=== PATIENT | male | born 1950 | race Caucasian/White ===

== ENCOUNTER 2021-12-14 07:36 | Outpatient (CLI) | payer MEDICARE, OTHER, SELFPAY ==
--- NOTE | 2021-12-23 15:27 | WPDSLEEPSTUD ---
Sleep Study Date of Study: 12/14/21 Ordering Provider: Yan Fletcher DO Interpreting Physician: Nila Rodríguez MD Sleep Study Type: Polysomnogram Height: 1.83 m Weight: 93.44 kg Body Mass Index: 27.9 Neck Circumference (inches): 16.5 [place]: 4 Reason for Sleep Study Hypersomnia Sleep History Blank Houston is a 71 year old man with hypertension, paroxysmal atrial fibrillation and dyslipidemia. He has occasional snoring, and this bothers others, on occasion. He occasionally has trouble sleeping with a cold. He corona not gasp for breath at night. He does not sweat excessively at night. He rarely notices his heart pounding or beating irregularly at night. He rarely falls asleep during the day, never falls asleep involuntarily and never falls asleep while driving. He does not have loss of muscle tone with strong emotion. Does not have daytime difficulties due to excessive sleepiness. He does not feel paralyzed on waking or falling asleep nor does he have vivid dreamlike scenes upon awakening or falling asleep. He does not feel afraid to go to sleep. He occasionally remembers his dreams. He rarely has racing thoughts. He does not feel sad or depressed. He rarely has anxiety. He does not have muscular tension. He rarely notices parts of his body jerking and he rarely kicks at night. He does not have crawling or aching feelings in the legs, does not have any kind of leg pain at night and does not have morning jaw pain. He rarely grinds his teeth during sleep. He rarely is bothered by pain during the day and rarely awakened by pain during the night. He does not wake up feeling stiff in the morning, does not wake up with sore or achy muscles and does not wake up with pain in the neck or spine. He has sexual problems. Normal bedtime is between 10:00 p.m. and 10:30 p.m., falling asleep easily, typically waking 2-4 times at night to go to the bathroom. He is not awake for very long, and he is able to return to sleep. He wakes in the morning between 6 and 7:00 a.m.. His weekend schedule is the same. He takes naps in the afternoon or evening. A short nap is refreshing. He often awakens feeling refreshed. He feels better in the morning compared to other times of day. Habits: Never smoked tobacco. No caffeine, alcohol or recreational drugs. [facility] Past Medical History Medical History (Updated 12/23/21 @ 15:52 by Nila Rodríguez MD) Fatigue Hx of ventricular fibrillation Hyperlipidemia Hypertension PAF (paroxysmal atrial fibrillation) Since 1999 Family History Family History Father Carcinoma of colon Patient's father is Mother Family history of heart disease in male family member before age 55 Patient's mother is Social History Social History Smoking status: Never smoker Second hand tobacco smoke exposure: No Alcohol intake: current Medications Home Medications Medication Instructions Recorded Confirmed Type acetaminophen 500 mg tablet 1,000 mg PO Q6H PRN tablet 07/17/19 12/07/21 History finasteride 5 mg tablet 5 mg PO DAILY 07/17/19 12/07/21 History glucosamine-chondroitin 250 mg-200 1 tablet PO DAILY tablet 07/17/19 12/07/21 History mg tablet tamsulosin 0.4 mg capsule 0.4 mg PO DAILY 07/19/19 12/07/21 History losartan 50 mg-hydrochlorothiazide 1 tablet PO DAILY #90 tablet 06/18/21 12/07/21 Rx 12.5 mg tablet rosuvastatin 10 mg tablet 10 mg PO DAILY #90 tablet 09/19/21 12/07/21 Rx flecainide 100 mg tablet 100 mg PO .prn #30 tablet 12/09/21 Rx apixaban 5 mg tablet 5 mg PO BID #180 tablet 12/10/21 Rx metoprolol tartrate 50 mg tablet 50 mg PO Q12H #180 tablet 12/10/21 Rx Sleep Procedure This test was performed using the [employer] multiple channel system including EOG, EEG, submental EMG, EKG, nasal and oral airflow using thermistors and nasal pr
[2021-12-23 15:34] VITALS: BMI 27.9
== END 2021-12-15 06:12 | disposition home or self-care (01) ==
LOC: ANHCSM 07:39
PROVIDERS: PCP Internal Medicine; Visit Provider Internal Medicine Cardiovascular Disease
DX: G47.30 Sleep apnea, unspecified (principal); G47.33 Obstructive sleep apnea (adult) (pediatric)
CPT/HCPCS: 95810

== ENCOUNTER 2022-01-05 07:37 | Outpatient (CLI) | payer MEDICARE, OTHER, SELFPAY ==
--- NOTE | 2022-01-18 16:28 | WPDSLEEPSTUD ---
Sleep Study Date of Study: 01/05/22 Ordering Provider: Yan Fletcher DO Interpreting Physician: Nila Rodríguez MD Sleep Study Type: CPAP Titration Height: 1.83 m Weight: 93.44 kg Body Mass Index: 27.9 Neck Circumference (inches): 15.5 [place]: 4 Reason for Sleep Study * Basic sleep study December 14, 2021 showed mild obstructive sleep apnea with an apnea hypopnea index of 13.2, worse in REM with an AHI of 41.1, moderate snoring and desaturation to 81% with 50.2 minutes spent below 88%. He has history of paroxysmal atrial fibrillation, hypertension and dyslipidemia. He returns for an in-lab CPAP titration. Sleep History Blank Houston is a 71 year old man with a mild obstructive sleep apnea seen on a basic sleep study 12/14/2021. hypertension, paroxysmal atrial fibrillation and dyslipidemia. He has occasional snoring, and this bothers others, on occasion. He occasionally has trouble sleeping with a cold. He corona not gasp for breath at night. He does not sweat excessively at night. He rarely notices his heart pounding or beating irregularly at night. He rarely falls asleep during the day, never falls asleep involuntarily and never falls asleep while driving. He does not have loss of muscle tone with strong emotion. Does not have daytime difficulties due to excessive sleepiness. He does not feel paralyzed on waking or falling asleep nor does he have vivid dreamlike scenes upon awakening or falling asleep. He does not feel afraid to go to sleep. He occasionally remembers his dreams. He rarely has racing thoughts. He does not feel sad or depressed. He rarely has anxiety. He does not have muscular tension. He rarely notices parts of his body jerking and he rarely kicks at night. He does not have crawling or aching feelings in the legs, does not have any kind of leg pain at night and does not have morning jaw pain. He rarely grinds his teeth during sleep. He rarely is bothered by pain during the day and rarely awakened by pain during the night. He does not wake up feeling stiff in the morning, does not wake up with sore or achy muscles and does not wake up with pain in the neck or spine. He has sexual problems. Normal bedtime is between 10:00 p.m. and 10:30 p.m., falling asleep easily, typically waking 2-4 times at night to go to the bathroom. He is not awake for very long, and he is able to return to sleep. He wakes in the morning between 6 and 7:00 a.m.. His weekend schedule is the same. He takes naps in the afternoon or evening. A short nap is refreshing. He often awakens feeling refreshed. He feels better in the morning compared to other times of day. Habits: Never smoked tobacco. No caffeine, alcohol or recreational drugs. [facility] Past Medical History Medical History (Updated 01/18/22 @ 16:35 by Nila Rodríguez MD) Fatigue Hx of ventricular fibrillation Hyperlipidemia Hypertension Obstructive sleep apnea PAF (paroxysmal atrial fibrillation) Since 1999 Surgical History Surgical History Status post biopsy of skin Family History Family History Father Carcinoma of colon Patient's father is Mother Family history of heart disease in male family member before age 55 Patient's mother is Social History Social History Smoking status: Never smoker Second hand tobacco smoke exposure: No Alcohol intake: current Medications Home Medications Medication Instructions Recorded Confirmed Type acetaminophen 500 mg tablet 1,000 mg PO Q6H PRN tablet 07/17/19 12/24/21 History finasteride 5 mg tablet 5 mg PO DAILY 07/17/19 12/24/21 History glucosamine-chondroitin 250 mg-200 1 tablet PO DAILY tablet 07/17/19 12/24/21 History mg tablet tamsulosin 0.4 mg capsule 0.4 mg PO DAILY 07/19/19 12/24/21 History buffy
[2022-01-18 18:50] VITALS: BMI 27.9
== END 2022-01-06 07:01 | disposition home or self-care (01) ==
LOC: ANHCSM 07:38
PROVIDERS: PCP Internal Medicine; Visit Provider Internal Medicine Cardiovascular Disease
DX: G47.33 Obstructive sleep apnea (adult) (pediatric) (principal)
CPT/HCPCS: 95811

== ENCOUNTER 2022-02-01 01:04 | Day surgery (SDC) | payer MEDICARE, OTHER, SELFPAY ==
[2022-01-26 15:05] VITALS: BMI 27.1
[2022-02-01 06:22] VITALS: BP 151/91; PULSE 63; RESP 18; TEMP 36.6; O2SAT 99
[2022-02-01] MEDS: LACTATED RINGERS 1,000 ML 150 ML IV CONT (06:34)
--- NOTE | 2022-02-01 07:19 | WPDANESEPPF ---
Anes - Initial Pre Proc Eval Procedure: Operation Date: 02/01/22 07:30 Proposed Procedures p Screening Colonoscopy - Nikolas Christie MD Date/Time: 02/01/22 07:19 Surgeon: Nikolas Christie MD Pre Op Diagnosis: neoplasm screening Patient Data Age: 71 Gender: M Height: 1.83 m Weight: 90.4 kg Last Vital Signs Temp 97.9 F 02/01/22 06:22 Pulse 63 02/01/22 06:22 Resp 18 02/01/22 06:22 BP 151/91 H 02/01/22 06:22 Pulse Ox 99 02/01/22 06:22 Allergies Allergy/AdvReac Type Severity Reaction Status Date / Time atorvastatin Allergy Intermediate Muscle pain Verified 02/01/22 06:20 Sulfa (Sulfonamide Allergy Mild Vomiting Verified 02/01/22 06:20 Antibiotics) adhesive tape AdvReac Mild Rash Verified 02/01/22 06:20 Home Medications Medication Instructions Recorded Confirmed Type acetaminophen 500 mg tablet 1,000 mg PO Q6H PRN tablet 07/17/19 01/26/22 History finasteride 5 mg tablet 5 mg PO DAILY 07/17/19 01/26/22 History glucosamine-chondroitin 250 mg-200 1 tablet PO DAILY tablet 07/17/19 01/26/22 History mg tablet tamsulosin 0.4 mg capsule 0.4 mg PO DAILY 07/19/19 01/26/22 History rosuvastatin 10 mg tablet 10 mg PO DAILY #90 tablet 09/19/21 01/26/22 Rx apixaban 5 mg tablet 5 mg PO BID #180 tablet 12/10/21 02/01/22 Rx metoprolol tartrate 50 mg tablet 50 mg PO Q12H #180 tablet 12/10/21 02/01/22 Rx flecainide 100 mg PO PRN PRN 01/26/22 01/26/22 History loratadine [Claritin] 10 mg PO DAILY 01/26/22 01/26/22 History losartan 50 mg PO DAILY 01/26/22 01/26/22 History Patient hx anesthesia problems: none Family hx anesthesia problems: none Results Review: All pre-operative results and documents have been reviewed as part of the pre-operative evaluation. [facility] Past Medical History Medical History (Updated 01/18/22 @ 16:35 by Nila Rodríguez MD) Fatigue Hx of ventricular fibrillation Hyperlipidemia Hypertension Obstructive sleep apnea PAF (paroxysmal atrial fibrillation) Since 1999 Surgical History Surgical History Status post biopsy of skin Family History Family History Father Carcinoma of colon Patient's father is Mother Family history of heart disease in male family member before age 55 Patient's mother is Social History Social History Smoking status: Never smoker Second hand tobacco smoke exposure: No Alcohol intake: never Substance use: never Substance use type: does not use Living arrangements: with family Spiritual care concerns: No Anes - Eval Final PreProcedure Day of Procedure 02/01/22 07:19 Patient weight: normal Heart: irregular rhythm Lungs: clear to auscultation Airway: Mallampati scale class III Neurological: alert and oriented Last oral intake: >/= 8 hours ASA classification: III Emergent: no Anesthetic plan: proceed Anesthesia type and monitoring: general GIVS and standard monitoring Results Review: All pre-operative results and documents have been reviewed as part of the pre-operative evaluation. Informed Consent: The patient's anesthetic plan and its attendant risks and benefits were discussed with the patient/family/POA. Questions were solicited and answers provided to the satisfaction of the patient/family/POA.
--- NOTE | 2022-02-01 07:24 | WPDANESEPPF ---
Anes - Initial Pre Proc Eval Procedure: Operation Date: 02/01/22 07:30 Proposed Procedures p Screening Colonoscopy - Nikolas Christie MD Date/Time: 02/01/22 07:24 Surgeon: Nikolas Christie MD Pre Op Diagnosis: neoplasm screening Patient Data Age: 71 Gender: M Height: 1.83 m Weight: 90.4 kg Last Vital Signs Temp 97.9 F 02/01/22 06:22 Pulse 63 02/01/22 06:22 Resp 18 02/01/22 06:22 BP 151/91 H 02/01/22 06:22 Pulse Ox 99 02/01/22 06:22 Allergies Allergy/AdvReac Type Severity Reaction Status Date / Time atorvastatin Allergy Intermediate Muscle pain Verified 02/01/22 06:20 Sulfa (Sulfonamide Allergy Mild Vomiting Verified 02/01/22 06:20 Antibiotics) adhesive tape AdvReac Mild Rash Verified 02/01/22 06:20 Home Medications Medication Instructions Recorded Confirmed Type acetaminophen 500 mg tablet 1,000 mg PO Q6H PRN tablet 07/17/19 01/26/22 History finasteride 5 mg tablet 5 mg PO DAILY 07/17/19 01/26/22 History glucosamine-chondroitin 250 mg-200 1 tablet PO DAILY tablet 07/17/19 01/26/22 History mg tablet tamsulosin 0.4 mg capsule 0.4 mg PO DAILY 07/19/19 01/26/22 History rosuvastatin 10 mg tablet 10 mg PO DAILY #90 tablet 09/19/21 01/26/22 Rx apixaban 5 mg tablet 5 mg PO BID #180 tablet 12/10/21 02/01/22 Rx metoprolol tartrate 50 mg tablet 50 mg PO Q12H #180 tablet 12/10/21 02/01/22 Rx flecainide 100 mg PO PRN PRN 01/26/22 01/26/22 History loratadine [Claritin] 10 mg PO DAILY 01/26/22 01/26/22 History losartan 50 mg PO DAILY 01/26/22 01/26/22 History Patient hx anesthesia problems: none Family hx anesthesia problems: none Results Review: All pre-operative results and documents have been reviewed as part of the pre-operative evaluation. [facility] Past Medical History Medical History (Updated 01/18/22 @ 16:35 by Nila Rodríguez MD) Fatigue Hx of ventricular fibrillation Hyperlipidemia Hypertension Obstructive sleep apnea PAF (paroxysmal atrial fibrillation) Since 1999 Surgical History Surgical History Status post biopsy of skin Family History Family History Father Carcinoma of colon Patient's father is Mother Family history of heart disease in male family member before age 55 Patient's mother is Social History Social History Smoking status: Never smoker Second hand tobacco smoke exposure: No Alcohol intake: never Substance use: never Substance use type: does not use Living arrangements: with family Spiritual care concerns: No Anes - Eval Final PreProcedure Day of Procedure 02/01/22 07:24 Results Review: All pre-operative results and documents have been reviewed as part of the pre-operative evaluation. Informed Consent: The patient's anesthetic plan and its attendant risks and benefits were discussed with the patient/family/POA. Questions were solicited and answers provided to the satisfaction of the patient/family/POA.
--- NOTE | 2022-02-01 07:44 | WPDGICN ---
Assessment and Plan Assessment and plan (1) Encounter for screening colonoscopy: Code(s): Z12.11 - Encounter for screening for malignant neoplasm of colon Status: Acute Assessment and Plan: Patient presents today for neoplasia screening colonoscopy. Further recommendations will be given after colonoscopy. GI Consult Note Consult date/time: 02/01/22 07:44 HPI: Blank Houston Jr. is a 71 year old male Presents for screening colonoscopy. Patient's current weight appetite and bowel movements are normal. He denies abdominal pain. He has had no bleeding. Family history is noncontributory. Past medical history is significant for atrial fibrillation for which she is on Eliquis. This been held in anticipation of colonoscopy. Review of Systems Review of Systems: All systems reviewed & are unremarkable except as noted in HPI and below PMFSH Past Medical History Medical History (Updated 02/01/22 @ 07:45 by Nikolas Christie MD) Fatigue Hx of ventricular fibrillation Hyperlipidemia Hypertension Obstructive sleep apnea PAF (paroxysmal atrial fibrillation) Since 1999 Surgical History Surgical History Status post biopsy of skin Family History Family History Father Carcinoma of colon Patient's father is Mother Family history of heart disease in male family member before age 55 Patient's mother is Social History Social History Smoking status: Never smoker Second hand tobacco smoke exposure: No Alcohol intake: never Substance use: never Substance use type: does not use Living arrangements: with family Spiritual care concerns: No Meds Home Medications and Allergies Home Medications Medication Instructions Recorded Confirmed Type acetaminophen 500 mg tablet 1,000 mg PO Q6H PRN tablet 07/17/19 01/26/22 History finasteride 5 mg tablet 5 mg PO DAILY 07/17/19 01/26/22 History glucosamine-chondroitin 250 mg-200 1 tablet PO DAILY tablet 07/17/19 01/26/22 History mg tablet tamsulosin 0.4 mg capsule 0.4 mg PO DAILY 07/19/19 01/26/22 History rosuvastatin 10 mg tablet 10 mg PO DAILY #90 tablet 09/19/21 01/26/22 Rx apixaban 5 mg tablet 5 mg PO BID #180 tablet 12/10/21 02/01/22 Rx metoprolol tartrate 50 mg tablet 50 mg PO Q12H #180 tablet 12/10/21 02/01/22 Rx flecainide 100 mg PO PRN PRN 01/26/22 01/26/22 History loratadine [Claritin] 10 mg PO DAILY 01/26/22 01/26/22 History losartan 50 mg PO DAILY 01/26/22 01/26/22 History Allergies Allergy/AdvReac Type Severity Reaction Status Date / Time atorvastatin Allergy Intermediate Muscle pain Verified 02/01/22 06:20 Sulfa (Sulfonamide Allergy Mild Vomiting Verified 02/01/22 06:20 Antibiotics) adhesive tape AdvReac Mild Rash Verified 02/01/22 06:20 Vital Signs Vital Signs - 24 hr 02/01/22 06:22 Temperature 97.9 F Pulse Rate 63 Respiratory Rate 18 Blood Pressure 151/91 H Pulse Oximetry 99 Exam Narrative: Physical exam reveals patient to be alert. Vital signs stable. HEENT exam is unremarkable. Patient is anicteric. Lungs are clear to auscultation and percussion. Heart is without murmur and extra sounds. Abdominal exam bowel sounds are present soft nontender with no hepatosplenomegaly. Digital external rectal exam is normal.
[2022-02-01 07:47] VITALS: BP 116/69; PULSE 72; RESP 21; O2SAT 96
[2022-02-01 07:51] VITALS: BP 118/71; PULSE 69; RESP 20; O2SAT 96
[2022-02-01 08:03] VITALS: BP 126/86; PULSE 69; RESP 14; O2SAT 94
== END 2022-02-01 08:08 | disposition home or self-care (01) ==
PROVIDERS: PCP Internal Medicine; Visit Provider Internal Medicine Gastroenterology
PROC: 0DJD8ZZ Inspection of Lower Intestinal Tract, Via Natural or Artificial Opening Endoscopic (ICD-10-PCS; CPT 45378; principal; 2022-02-01 07:30)
DX: Z12.11 Encounter for screening for malignant neoplasm of colon (principal); D12.3 Benign neoplasm of transverse colon; K64.8 Other hemorrhoids; K57.30 Diverticulosis of large intestine without perforation or abscess without bleeding; I10 Essential (primary) hypertension; I48.0 Paroxysmal atrial fibrillation; E78.5 Hyperlipidemia, unspecified; G47.33 Obstructive sleep apnea (adult) (pediatric); Z79.01 Long term (current) use of anticoagulants
CPT/HCPCS: 45385; 88305; J2704; J7120

== ENCOUNTER 2023-02-24 13:31 | Emergency (ER) | payer MEDICARE, OTHER, SELFPAY ==
[2023-02-24 13:36] VITALS: BP 145/92; PULSE 70; RESP 16; TEMP 36.8; O2SAT 97
--- NOTE | 2023-02-24 13:59 | ED.GENADULT ---
HPI - General Adult General Chief complaint: Skin/Abscess/Foreign Body Stated complaint: TICK BITE Time Seen by Provider: 02/24/23 13:59 Source: patient, RN notes reviewed and old records reviewed Mode of arrival: ambulatory Limitations: no limitations History of Present Illness HPI narrative: 72 year [facility] by with complaints of tick bite to his right posterior thigh area which his pulled out of his leg today. Patient reports that he doesn't know how long it had been there. Patient has small red area to the posterior aspect of his right thigh no drainage noted or any bulls eye formation at site, patient denies any body aches or fevers. MD complaint: tick bite Onset (ago): hour(s) (noted this morning) Location: right and lower extremity (posterior thigh) Associated symptoms: denies other symptoms Treatments prior to arrival: other ( pulled tick out of his leg) Related Data Home Medications Medication Instructions Recorded Confirmed acetaminophen 500 mg tablet 1,000 mg PO Q6H PRN Pain 07/17/19 02/03/23 (Tylenol Extra Strength) finasteride 5 mg tablet 5 mg PO DAILY 07/17/19 02/03/23 glucosamine-chondroitin 250 mg-200 1 tablet PO DAILY 07/17/19 02/03/23 mg tablet (Osteo Bi-Flex) tamsulosin 0.4 mg capsule 0.4 mg PO DAILY 07/19/19 02/03/23 loratadine 10 mg tablet (Claritin) 10 mg PO DAILY 01/26/22 02/03/23 Allergies Allergy/AdvReac Type Severity Reaction Status Date / Time atorvastatin Allergy Intermediate Muscle pain Verified 02/24/23 13:53 Sulfa (Sulfonamide Allergy Mild Vomiting Verified 02/24/23 13:53 Antibiotics) adhesive tape AdvReac Mild Rash Verified 02/24/23 13:53 Review of Systems Review of Systems: CONSTITUTIONAL: Denies fever, chills, or sweats. CARDIOVASCULAR: Denies chest pain, palpitations, or edema. RESPIRATORY: Denies cough or dyspnea. GASTROINTESTINAL: Denies abdominal pain, nausea, vomiting SKIN: small red bite area to posterior right thigh where removed tick this morning, no drainage noted or pain to site MUSCULOSKELETAL: Denies myalgia. NEUROLOGIC: Denies headache, numbness All systems reviewed & are unremarkable except as noted in HPI and below PMFSH Past Medical History Medical History (Updated 02/25/23 @ 09:36 by Dottie Kennedy NP) BPH (benign prostatic hyperplasia) Fatigue Hx of ventricular fibrillation Hyperlipidemia Hypertension Obstructive sleep apnea PAF (paroxysmal atrial fibrillation) Since 1999 Surgical History Surgical History (Updated 02/25/23 @ 09:31 by Dottie Kennedy NP) H/O inguinal hernia repair History of medial meniscus repair of left knee Status post biopsy of skin Family History Family History Father Carcinoma of colon Patient's father is Mother Family history of heart disease in male family member before age 55 Patient's mother is Social History Social History Smoking status: Never smoker Second hand tobacco smoke exposure: No Alcohol intake: never Substance use: never Substance use type: does not use Lack of Transportation: No Lack of Food: Never True Current Housing: I Have Housing Concerned About Future Housing: No Difficulty Paying Gas/Electric Bills: No Difficulty Paying for Meds: No Currently Unemployed: No Education: High School Diploma/GED Difficulty w/ Childcare or Family Care: No Living arrangements: with family Spiritual care concerns: No Comments At time of signature, agree with nursing past medical, surgical, social and family history. There is no relevant family history pertinent to the presenting complaint Exam Narrative: GENERAL: Well-appearing, well-nourished, and in no acute distress.denies any fevers or any body aches HEAD: Normocephalic, atraumatic. EYES: PERRLA an
== END 2023-02-24 14:19 | disposition home or self-care (01) ==
PROVIDERS: Emergency Provider Registered Nurse; PCP Internal Medicine
DX: S70.361A Insect bite (nonvenomous), right thigh, initial encounter (principal); W57.XXXA Bitten or stung by nonvenomous insect and other nonvenomous arthropods, initial encounter; N40.0 Benign prostatic hyperplasia without lower urinary tract symptoms; E78.5 Hyperlipidemia, unspecified; I48.0 Paroxysmal atrial fibrillation
CPT/HCPCS: 99213; G0463

== ENCOUNTER 2023-09-02 15:43 | Emergency (ER) | payer MEDICARE, OTHER, SELFPAY ==
--- NOTE | 2023-09-02 15:49 | ED.URI ---
HPI - URI/Sore Throat General Chief Complaint: Upper Respiratory Infection Stated Complaint: Covid Time Seen by Provider: 09/02/23 15:49 Source: patient, RN notes reviewed and old records reviewed Mode of arrival: ambulatory Limitations: no limitations History of Present Illness HPI Narrative: 73-year-old male presents to the [facility] after testing positive for COVID-19 this afternoon. Patient tried calling [facility], unable to get a hold of. Patient with fatigue, runny nose. Reports sinus congestion, denies any other symptoms Patient presents just wanting treatment for COVID-19 Patient is on Eliquis, losartan/ hydrochlorothiazide, flecainide and on rosuvastatin contraindicated to prescribing Paxlovid, discussed this in great detail with the patient. Onset (ago): hour(s) Related Data Home Medications Medication Instructions Recorded Confirmed acetaminophen 500 mg tablet 1,000 mg PO Q6H PRN Pain 07/17/19 09/02/23 (Tylenol Extra Strength) finasteride 5 mg tablet 5 mg PO DAILY 07/17/19 09/02/23 glucosamine-chondroitin 250 mg-200 1 tablet PO DAILY 07/17/19 09/02/23 mg tablet (Osteo Bi-Flex) tamsulosin 0.4 mg capsule 0.4 mg PO DAILY 07/19/19 09/02/23 loratadine 10 mg tablet (Claritin) 10 mg PO DAILY 01/26/22 09/02/23 Allergies Allergy/AdvReac Type Severity Reaction Status Date / Time atorvastatin Allergy Intermediate Muscle pain Verified 09/02/23 15:58 Sulfa (Sulfonamide Allergy Mild Vomiting Verified 09/02/23 15:58 Antibiotics) adhesive tape AdvReac Mild Rash Verified 09/02/23 15:58 Review of Systems Review of Systems: All systems reviewed & are unremarkable except as noted in HPI and below Constitutional: Constitutional: Reports no additional constitutional complaints Eyes: Eyes: Reports no additional eye complaints ENT: Reports as per HPI Cardiovascular: Cardiovascular: Reports no additional cardiovascular complaints, Denies chest pain and Denies dyspnea Respiratory: Respiratory: Reports no additional respiratory complaints, Denies chest congestion, Denies cough and Denies dyspnea Gastrointestinal: Gastrointestinal: Reports no additional gastrointestinal complaints, Denies abdominal pain, Denies nausea and Denies vomiting Musculoskeletal: Musculoskeletal: Reports no additional musculoskeletal complaints Integumentary/Breasts: Skin/Breast: Reports system reviewed and no additional complaints, except as docu Neurologic: Reports system reviewed and no additional complaints, except as documented Psychiatric: Psychiatric: Reports no additional psychiatric complaints Allergic/Immunologic: Allergic/Immunologic: Reports no additional allergic/immunologic complaints PMFSH Past Medical History Medical History BPH (benign prostatic hyperplasia) Fatigue Hx of ventricular fibrillation Hyperlipidemia Hypertension Obstructive sleep apnea PAF (paroxysmal atrial fibrillation) Since 1999 Surgical History Surgical History H/O inguinal hernia repair History of medial meniscus repair of left knee Status post biopsy of skin Family History Family History Father Carcinoma of colon Patient's father is Mother Family history of heart disease in male family member before age 55 Patient's mother is Social History Social History Smoking status: Never smoker Second hand tobacco smoke exposure: No Alcohol intake: never Substance use: never Substance use type: does not use Lack of Transportation: No Lack of Food: Never True Current Housing: I Have Housing Concerned About Future Housing: No Difficulty Paying Gas/Electric Bills: No Difficulty Paying for Meds: No Currently Unemployed: No Education: High School Diploma/GED Difficulty w/
[2023-09-02 16:05] VITALS: BP 143/82; PULSE 105; RESP 16; TEMP 37.7; O2SAT 96
== END 2023-09-02 16:24 | disposition home or self-care (01) ==
PROVIDERS: Emergency Provider Nurse Practitioner; PCP Internal Medicine
DX: U07.1 COVID-19 (principal); N40.0 Benign prostatic hyperplasia without lower urinary tract symptoms; I10 Essential (primary) hypertension; E78.5 Hyperlipidemia, unspecified; I48.0 Paroxysmal atrial fibrillation
CPT/HCPCS: 87426; 99213; C9803; G0463

== ENCOUNTER 2023-10-30 07:39 | Outpatient (CLI) | payer MEDICARE, OTHER, SELFPAY | END 2023-10-30 07:40 | disposition home or self-care (01) | LOC: ANHAUDASC 07:41 | PROVIDERS: PCP Internal Medicine; Visit Provider Physician Assistant | DX: H90.3 Sensorineural hearing loss, bilateral (principal) | CPT/HCPCS: 92557; 92567 ==

== ENCOUNTER 2024-01-29 09:30 | Outpatient (RCR) | payer MEDICARE, OTHER, SELFPAY | END 2024-03-20 23:59 | disposition home or self-care (01) | LOC: ANHAUDASC 09:30 | PROVIDERS: PCP Internal Medicine; Visit Provider Internal Medicine | DX: Z46.1 Encounter for fitting and adjustment of hearing aid (principal) | CPT/HCPCS: 99199; V5261 ==

== ENCOUNTER 2024-03-18 17:42 | Emergency (ER) | payer MEDICARE, OTHER, SELFPAY ==
[2024-03-18 17:55] VITALS: BP 145/82; PULSE 97; RESP 16; TEMP 37.7; O2SAT 98
--- NOTE | 2024-03-18 18:22 | ED.MALEGU ---
HPI - Male Genitourinary General Chief complaint: Urogenital-Male Stated complaint: UTI SYMPTOMS Time Seen by Provider: 03/18/24 18:12 Source: patient, RN notes reviewed and old records reviewed Mode of arrival: ambulatory Limitations: no limitations History of Present Illness HPI Narrative: 73 year old male who presents to express care with complaints of urinary burning frequency and urgency since 0800 this morning. Patient reports that he has noted some pinkish cast to his urine at intervals today also, he is on Eliquis. Patient reports that he has been drinking a lot of water and cranberry juice today. Patient reports some bilateral mid lower abdominal pain with no CVA tenderness. Patient reports that he has not had any known fevers or chills denies any nausea or vomiting. patient reports that he has taken some Tylenol for his symptoms. MD Complaint: dysuria and other (urgency and frequency of urination) Onset (ago): hour(s) (since 0800 this morning) Duration: intermittent Location: abdomen (mid lower abdomen bilaterally) Severity scale (1-10): 5 Quality: aching and burning Associated symptoms: Reports blood in urine, dysuria and other (urgency, frequency,burning) Related Data Home Medications Medication Instructions Recorded Confirmed acetaminophen 500 mg tablet 1,000 mg PO Q6H PRN Pain 07/17/19 03/18/24 (Tylenol Extra Strength) finasteride 5 mg tablet 5 mg PO DAILY 07/17/19 03/18/24 glucosamine-chondroitin 250 mg-200 1 tablet PO DAILY 07/17/19 03/18/24 mg tablet (Osteo Bi-Flex) tamsulosin 0.4 mg capsule 0.4 mg PO DAILY 07/19/19 03/18/24 loratadine 10 mg tablet (Claritin) 10 mg PO DAILY 01/26/22 03/18/24 Allergies Allergy/AdvReac Type Severity Reaction Status Date / Time atorvastatin Allergy Intermediate Muscle pain Verified 03/18/24 18:01 Sulfa (Sulfonamide Allergy Mild Vomiting Verified 03/18/24 18:01 Antibiotics) adhesive tape AdvReac Mild Rash Verified 03/18/24 18:01 Review of Systems Review of Systems: CONSTITUTIONAL: Denies fever, chills, or sweats. CARDIOVASCULAR: Denies chest pain, palpitations, or edema. RESPIRATORY: Denies cough or dyspnea. GASTROINTESTINAL: Reports some mid bilateral abdominal pain,denies any nausea, vomiting, or diarrhea. GENITOURINARY: Reports dysuria, frequency, urgency. Denies flank pain positive for some hematuria. SKIN: Denies rash or itching. MUSCULOSKELETAL: Denies back pain or myalgia. Denies CVA tenderness NEUROLOGIC: Denies headache All systems reviewed & are unremarkable except as noted in HPI and below PMFSH Past Medical History Medical History BPH (benign prostatic hyperplasia) Fatigue Hx of ventricular fibrillation Hyperlipidemia Hypertension Obstructive sleep apnea PAF (paroxysmal atrial fibrillation) Since 1999 Surgical History Surgical History H/O inguinal hernia repair History of medial meniscus repair of left knee Status post biopsy of skin Family History Family History Father Carcinoma of colon Patient's father is Mother Family history of heart disease in male family member before age 55 Patient's mother is Social History Social History Smoking status: Never smoker Second hand tobacco smoke exposure: No Alcohol intake: never Substance use: never Substance use type: does not use Lack of Transportation: No Lack of Food: Never True Current Housing: I Have Housing Concerned About Future Housing: No Difficulty Paying Gas/Electric Bills: No Difficulty Paying for Meds: No Currently Unemployed: No Education: High School Diploma/GED Difficulty w/ Childcare or Family Care: No Living arrangements: with family Spiritual care concerns: No Comments A
[2024-03-18 19:02] LABS: EDUAAPPEAR Cloudy; EDUABILI Negative; EDUABLOOD 2+; EDUACOLOR1 Dark; EDUAGLUCOSE Negative; EDUAKETONE Negative; EDUALEUKO 1+; EDUANITRATE Positive; EDUAPH 5.5; EDUAPROTEIN 1+; EDUAUROBILI 0.2
== END 2024-03-18 18:45 | disposition home or self-care (01) ==
PROVIDERS: Emergency Provider Registered Nurse; PCP Nurse Practitioner
DX: N39.0 Urinary tract infection, site not specified (principal); R31.9 Hematuria, unspecified; B96.20 Unspecified Escherichia coli [E. coli] as the cause of diseases classified elsewhere; N40.0 Benign prostatic hyperplasia without lower urinary tract symptoms; E78.5 Hyperlipidemia, unspecified; I10 Essential (primary) hypertension; I48.0 Paroxysmal atrial fibrillation; I49.01 Ventricular fibrillation
CPT/HCPCS: 81003; 87077; 87086; 87088; 87186; 99213; G0463

== ENCOUNTER 2024-10-18 23:51 | Emergency (ER) | payer MEDICARE, OTHER, SELFPAY ==
--- OUTSIDE RECORDS SUMMARY | 2024-10-18 23:53 | XMS_ITS | Encounter Summary ---
Author Organization [facility] Address [address] [facility] [place] [address] Care Team Providers Care Telesales Agent Name Role Phone Chris Gudino Primary Care Provider [phone] Encounter Details Date Type Department Care Team (Late st Contact Info) Description 01/20/2023 Lab Requisition [facility] Care [facility] Lab [address] [facility] [place] [id number] Lonnie Webb MD [address] [facility] [address] Social History Tobacco Use Types Packs/Day Years Used Date Smoking Tobacco: Never Assessed Sex and Gender Information Value Date Recorded Sex Assigned at Not on file Gender Identity Not on file Sexual Orientation Not on file documented as of this encounter Plan of Treatment Not on file documented as of this encounter Procedures Procedure Name Priority Date/Time Associated Diagnosis Comments DERMATOPATHOLOGY Routine 01/18/2023 12:0 0 AM CDT documented in this encounter Results * DERMATOPATHOLOGY (01/18/2023 12:00 AM CDT) Case Report Dermatopathology Report ? Case: [id number] ? Authorizing Provider: ??Lonnie Webb MD ?Collected: ? 01/18/2023 12:00 AM ? Ordering Location: ? [facility] ?Received: ?01/20/2023 06:40 AM ? Pathologist: ? Emilia Caputo MD ? Specimen: ?Skin, ant. neck ? 3 12:31 PM CDT DERMATOPATHOLOGY LABORATORY Final Diagnosis Specimen A. SKIN, ant. neck: BASAL CELL CARCINOMA, NODULAR TYPE (C44.41) 3 12:31 PM T DERMATOPATHOLOGY LABORATORY Clinical History BCCA vs. Other. Path# [id number] 3 12:31 PM T DERMATOPATHOLOGY LABORATORY Gross Description Specimen A: Received is one formalin filled container labeled with the patient's name and designated ant. neck. The specimen consists of a shave biopsy measuring 7x5x1 mm. Jar 0. 3 12:31 PM CDT DERMATOPATHOLOGY LABORATORY Microscopic Description Specimen A. SKIN, ant. neck: Within the dermis there are aggregates of basaloid cells with a high nuclear to cytoplasmic ratio and peripheral palisading. 3 12:31 PM T DERMATOPATHOLOGY LABORATORY Disclaimer An external and internal positive and negative controls are appropriate for the histochemical, immunohistochemical and immunofluorescence stain(s) in this case (if any), except where stated explicitly. The performance characteristics of the stain(s) cited in this report were developed and its performance characteristic determined by the Dermatopathology Laboratory at [facility], directed by Dr. Carola Claros. These tests need not be, and therefore are not, approved by the [place] Food and Drug Administration. The tests are used for clinical purposes. Billing Codes Specimen Charges Stain Charges 51096 1 3 12:31 PM CDT DERMATOPATHOLOGY LABORATORY Embedded Images 3 12:31 PM CDT DERMATOPATHOLOGY LABORATORY Pathology/Cytolog y TISSUE SPECIMEN FROM SKIN / Unknown 01/18/2023 01/20/2023 6:40 AM CDT Lonnie Webb MD LAB - PATHOLOGY/CYTO LOGY ORDERABLES DERMATOPATHOLOGY LABORATORY [facility] - Department of Dermatology [address], [address] [phone] documented in this encounter Visit Diagnoses Not on filedocumented in this encounter Care Teams Telesales Agent Relationship Specialty Start Date End Date Chris Gudino DO [address] [facility] [address] [facility] [address] [place] [address] PCP - General 02/07/22 documented as of this encounter
--- OUTSIDE RECORDS SUMMARY | 2024-10-18 23:53 | XMS_ITS | Encounter Summary ---
Author Organization [facility] Address [address] [place] [address] Care Team Providers Care President & Ceo Name Role Phone Chris Gudino Primary Care Provider [phone] Encounter Details Date Type Department Care Team (Late st Contact Info) Description 12/04/2020 Lab Requisition [facility] Care DermPath Lab [address] [facility], [place] [phone] Lonnie Webb MD [address] [facility] [place] [place] [address] Social History Tobacco Use Types [...] Priority Date/Time Associated Diagnosis Comments DERMATOPATHOLOGY Routine 12/03/2020 3:33 AM CDT documented in this encounter Results * DERMATOPATHOLOGY (12/03/2020 3:33 AM CDT) Case Report Dermatopathology Report ? Case: [id number] ? Authorizing Provider: ??Lonnie Webb MD ?Collected: ? 12/03/2020 03:33 AM ? Ordering Location: ? [facility] ?Received: ?12/04/2020 06:42 AM ? Pathologist: ? Dmitry Claros MD ? Specimen: ?Skin, left cheek ? 4:07 PM T DERMATOPATHOLOGY LABORATORY Final Diagnosis Specimen A. SKIN, left cheek: BASAL CELL CARCINOMA, NODULAR TYPE (C44.319) 4:07 PM [facility] DERMATOPATHOLOGY LABORATORY Clinical History BCCA vs angioma. Path# [id number]. 4:07 PM [facility] DERMATOPATHOLOGY LABORATORY Gross Description Specimen A: Received is one formalin filled container labeled with the patient's name and designated left cheek. The specimen consists of a shave biopsy measuring [id number]. Jar 0. 4:07 PM [facility] DERMATOPATHOLOGY LABORATORY Microscopic Description Specimen A. SKIN, left cheek: Within the dermis there are aggregates of basaloid cells with a high nuclear to cytoplasmic ratio and peripheral palisading. 4:07 PM T DERMATOPATHOLOGY LABORATORY Disclaimer An external and internal positive and negative controls are appropriate for the histochemical, immunohistochemical and immunofluorescence stain(s) in this case (if any), except where stated explicitly. The performance characteristics of the stain(s) cited in this report were developed and its performance characteristic determined by the Dermatopathology Laboratory at [facility], directed by Dr. Carola Claros. These tests need not be, and therefore are not, approved by the [place] Food and Drug Administration. The tests are used for clinical purposes. Billing Codes Specimen Charges Stain Charges 58283 1 1 4:07 PM CDT DERMATOPATHOLOGY LABORATORY Embedded Images 1 4:07 PM CDT DERMATOPATHOLOGY LABORATORY Pathology/Cytolo gy TISSUE SPECIMEN FROM SKIN / Unknown 12/03/2020 3:33 AM CDT 12/04/2020 6:42 AM CDT Lonnie Webb MD LAB - PATHOLOGY/CYTO LOGY ORDERABLES DERMATOPATHOLOGY LABORATORY [facility] - Department of Dermatology [facility] [address] [place] [address], [address] [phone] documented in this encounter Visit Diagnoses Not on filedocumented in this encounter Care Teams President & Ceo Relationship Specialty Start Date End Date Chris Gudino DO [address] [facility] [address] [facility] [address] [place] [address] PCP - General 02/07/22 documented as of this encounter
--- OUTSIDE RECORDS SUMMARY | 2024-10-18 23:53 | XMS_ITS | Referral Summary ---
Author Organization [facility] Address [address] [place] [phone] Care Team Providers Care Food Production Manager Name Role Phone Chris Gudino MD Primary Care Provider [phone] Allergies Active Allergy Reactions Criticality Noted Date Comments Atorvastatin Unknown Low Lovastatin Unknown Low Medications rosuvastatin (CRESTOR) 10 mg tablet take 1 tablet by oral route every day 0 0 6 Active ascorbic acid (vitamin C) 1,000 mg tablet take one tablet daily 0 0 1 Active sildenafil (VIAGRA) 100 mg tablet take 1 tablet (100MG) by oral route every day as needed approximately 1 hour before sexual activity 6 5 3 Active potassium chloride ER (potassium chloride ER) 20 mEq CR tablet take 1 tablet by oral route every day with food 90 0 4 Active fluticasone (FLONASE) 50 mcg/actuation nasal spray 0 spray 0 7 Active acetaminophen (TYLENOL EXTRA STRENGTH) 500 mg tablet 500 mg. 0 0 7 Active finasteride (PROSCAR) 5 mg tablet Take 1 tablet by mouth daily. 8 Active lisinopril (PRINIVIL,ZEST RIL) 40 mg tablet Take 1 tablet by mouth daily. 8 Active glucosamine/ch ondr denney A sod (OSTEO BI-FLEX ORAL) Take by mouth daily. Active cholecalcifero l (VITAMIN D3) 400 unit capsule Take 400 Units by mouth daily. Active ELIQUIS 5 mg tablet TAKE 1 TABLET TWICE A DAY 180 tablet 3 8 Active metoprolol (LOPRESSOR) 50 mg tablet Take 1 tablet (50 mg total) by mouth 2 (two) times a day. 180 tablet 3 8 Active Active Problems Problem Noted Date Diagnosed Date Diastasis of rectus abdominis 01/26/2017 Overview (02/10/2017): Diastasis recti Hyperlipidemia 02/20/2013 Overview (12/21/2016): HYPERLIPIDEMIA NEC/NOS Atrial fibrillation (CMS/HCC) 11/20/2012 Overview (12/22/2016): ATRIAL FIBRILLATION Hypertension 08/14/2012 Overview (12/21/2016): HYPERTENSION NOS Osteoarthritis 08/14/2012 Overview (12/22/2016): OSTEOARTHROS NOS-UNSPEC Insomnia 08/14/2012 Overview (12/22/2016): INSOMNIA NEC Immunizations Name Administration Dates Next Due Hep B Vaccine 05/21/2009,11/19/2008,10/20/2008 Influenza, Split 08/08/2011,06/18/2010 Influenza, Trivalent, Split, Preservative Free, Intradermal 08/19/2013,08/14/2012 Td, adsorbed 09/18/2007 Social History Tobacco Use Types Packs/Day Years Used Date Smoking Tobacco: Former Smokeless Tobacco: Never Alcohol Use Standard Drinks/Week Comments Yes 0 (1 standard drink = 0.6 oz pur e alcohol) Sex and Gender Information Value Date Recorded Sex Assigned at Not on file 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 Gender Identity Not on file Sexual Orientation Not on file Last Filed Vital Signs Vital Sign Reading Time Taken Comments Blood Pressure 148/82 05/09/2018 9:02 AM CDT Pulse 66 05/09/2018 9:02 AM CDT Temperature - - Respiratory Rate - - Oxygen Saturation - - Inhaled Oxygen Concentration - - Weight 98.4 kg (217 lb) 05/09/2018 9:02 AM CDT Height 182.9 cm (6') 05/09/2018 9:02 AM CDT Body Mass Index 29.43 05/09/2018 9:02 AM CDT Plan of Treatment Not on file Insurance MEDICARE [facility] [employer] BENEFIT PLAN Care Teams Food Production Manager Relationship Specialty Start Date End Date Chris Gudino MD [address] [facility] [address] [place] [address] PCP - General 11/21/11
--- OUTSIDE RECORDS SUMMARY | 2024-10-18 23:53 | XMS_ITS | Clinical Summary ---
Author Organization [facility] Address [address] [place] [address] Care Team Providers Care Bridge Club Manager Name Role Phone Chris Gudino MD Primary Care Provider [phone]- [phone] Allergies Active Allergy Reactions Criticality Noted Date [...] Preservative Free, Intradermal 08/19/2013,08/14/2012 Td, adsorbed 09/18/2007 Surgical History Surgery Date Site/Laterality Comments OTHER SURGICAL HISTORY Bilateral Ingual Hernia: Surgery OTHER SURGICAL HISTORY Right Undescended Testical: Surgery ADENOIDECTOMY adenoidectomy TONSILLECTOMY Tonsillectomy KNEE ARTHROSCOPY Left Knee Arthroscopy OTHER SURGICAL HISTORY Eye Surgery - Bilateral KNEE SURGERY Knee surgery INGUINAL HERNIA REPAIR Hernia repair, inguinal OTHER SURGICAL HISTORY orchiectomy for undescended testicle OTHER SURGICAL HISTORY Basil cell skin cancer surgery OTHER SURGICAL HISTORY eye surg Medical History Medical History Date Comments Atrial fibrillation (CMS/HCC) (HCC) Atrial fibrillation Hx Other Medical Bilateral Ingua l Hernia Hx Other Medical Right Undescend ed Testical Hx Other Medical Cardioversion Hx Other Medical Arrhythmias Hx Other Medical Diverticulosis Osteoarthritis Osteoarthritis Hypertension Hypertension Family History Medical History Relation Name Comments Bladder Cancer Father Cancer -bladd er; Cause of : Cancer -bladder Hypertension Father Hypertension; Irritable bowel syndrome Father Irr itable bowel disease; Heart attack Mother Myocardial Infa rction; Heart disease Mother Heart disease; Cause of : Heart disease Hypertension Mother Hypertension; Lymphoma Sister 1 Cancer -lymphom a; Hyperlipidemia Sister 2 Hyperlipidemi a; Relation Name Status Comments Father Mother Alive Sister 1 Sister 2 Social History Tobacco Use Types Packs/Day Years Used Date Smoking Tobacco: Former Smokeless Tobacco: Never Alcohol Use Standard Drinks/Week Comments Yes 0 (1 standard drink = 0.6 oz pur e alcohol) Sex and Gender Information Value Date Recorded Sex Assigned at Not on file 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
--- OUTSIDE RECORDS SUMMARY | 2024-10-18 23:53 | XMS_ITS | Encounter Summary ---
Author Organization [facility] Address [address] [facility] [place] [address] Care Team Providers Care Hi Lift Operator Name Role Phone Chris Gudino Primary Care Provider [phone] Encounter Details Date Type Department Care Team (Late st Contact Info) Description 12/15/2021 Lab Requisition [facility] Care DermPath Lab [address] [facility] [place] [phone] Lonnie Webb MD [address] [facility] [place] [address] Social History Tobacco Use Types [...] Priority Date/Time Associated Diagnosis Comments DERMATOPATHOLOGY Routine 12/15/2021 12:0 0 AM CDT documented in this encounter Results * DERMATOPATHOLOGY (12/15/2021 12:00 AM CDT) Case Report Dermatopathology Report ? Case: [id number] ? Authorizing Provider: ??Lonnie Webb MD ?Collected: ? 12/15/2021 12:00 AM ? Ordering Location: ? [facility] ?Received: ?12/15/2021 04:41 PM ? Pathologist: ? Uzma Terry MD ? Specimen: ?Skin, right postauricular ? 2 1:04 PM CDT DERMATOPATHOLOGY LABORATORY Final Diagnosis Specimen A. SKIN, right postauricular: BASAL CELL CARCINOMA, NODULAR TYPE (C44.212) 2 1:04 PM T DERMATOPATHOLOGY LABORATORY Clinical History BCCA vs other. Path # [id number]. 2 1:04 PM T DERMATOPATHOLOGY LABORATORY Gross Description Specimen A: Received is one formalin filled container labeled with the patient's name and designated right postauricular. The specimen consists of a shave biopsy measuring [id number]. Jar 0. 2 1:04 PM CDT DERMATOPATHOLOGY LABORATORY Microscopic Description Specimen A. SKIN, right postauricular: Within the dermis there are aggregates of basaloid cells with a high nuclear to cytoplasmic ratio and peripheral palisading. 2 1:04 PM T DERMATOPATHOLOGY LABORATORY Disclaimer An external and internal positive and negative controls are appropriate for the histochemical, immunohistochemical and immunofluorescence stain(s) in this case (if any), except where stated explicitly. The performance characteristics of the stain(s) cited in this report were developed and its performance characteristic determined by the Dermatopathology Laboratory at [facility], directed by Dr. Carola Claros. These tests need not be, and therefore are not, approved by the [place] Food and Drug Administration. The tests are used for clinical purposes. Billing Codes Specimen Charges Stain Charges 52736 1 2 1:04 PM CDT DERMATOPATHOLOGY LABORATORY Embedded Images 2 1:04 PM CDT DERMATOPATHOLOGY LABORATORY Pathology/Cytolog y TISSUE SPECIMEN FROM SKIN / Unknown 12/15/2021 12/15/2021 4:41 PM CDT Lonnie Webb MD LAB - PATHOLOGY/CYTO LOGY ORDERABLES DERMATOPATHOLOGY LABORATORY [facility] - Department of Dermatology [facility] Medicine [address] [place] [address], [address] [phone] documented in this encounter Visit Diagnoses Not on filedocumented in this encounter Care Teams Hi Lift Operator Relationship Specialty Start Date End Date Chris Gudino DO [address] [facility] [address] [place] [address] [place] [address] PCP - General 02/07/22 documented as of this encounter
--- OUTSIDE RECORDS SUMMARY | 2024-10-18 23:53 | XMS_ITS | Continuity of Care Document ---
Author Organization [facility] Address [address] [place] [address] Phone Care Team Providers Care Police Shift Commander Name Role Phone Unavailable Unavailable Unavailable Procedures Procedure Date Postop followup visit Postop followup visit Postop followup visit Knee arthscpy mnsctmy medial or lat Office/outpatient visit,est, mod 2005 MRI lwr extrm joint, w/o contrast Office/outpatient visit,new, mod 2005 X-ray exam of knee, 3 views Advance Directives Directive Yes / No Effective Date File Name No Information Encounters Encounter Description Practice Location Reason(s) For Visit Diagnoses Date Provider Providers Copied on Encounter [facility], [address], [id number], [place] tel:[phone] [facility] [employer] No Information 7 No Information [facility] [employer], [address] [facility] [address], [place], [place], [id number], [place] tel:[phone] [facility] [employer] [facility] No Information 7 No Information [facility] [employer] [facility], [address] [facility] [address], [place], [place], [id number], [place] tel:[phone] [facility] [employer] [facility] No Information 6 No Information [facility] [employer] [facility], [address] [facility] [address], [place], [id number], tel:[phone] [facility] No Information 3200 6 No Information Office/outpat ient visit,est, [facility], [address] [facility] [address], [place], [place], [id number], tel:[phone] [facility] [employer] [facility] No Information 0 [address] [facility], [address] [facility] [address], [place], [place], [id number], tel:[phone] [place] [address] No Information 0 6200 6 No Information Office/outpat ient visit,[facility], [facility], [address] [address], [place], [place], [id number], tel:[phone] [facility] [employer] [facility] No Information 0200 6 No Information Family History Family Member Type Diagnosis Age At Onset No Information Payers Payer name Insurance type Covered alliance party ID Authorchristosa tilenny(s) [facility] [id number] Social History Type Description Quantity Date Captured Comments Sex Male Smoking Status No Information Chief Complaint And Reason For Visit No Information Reason For Referral Reason For Referral No Information History Of Present Illness Encounter Date Complaint History Of Prese nt Illness No Information Functional Status Date Functional Assessmen t No Information Instructions Date Instruction Additional Infor mation No Information Assessments Type Assessment Date No Information Patient Care Teams Name Effective Dates (start - stop) Status Members No Information
--- OUTSIDE RECORDS SUMMARY | 2024-10-18 23:53 | XMS_ITS | Referral Summary ---
Author Organization [facility] Address [address] [place] [address] Care Team Providers Care Marble Finisher Name Role Phone Chris Gudino DO Primary Care Provider [phone] Source Comments [facility],non-owned Affiliates and Associated Physician Practices is amultiple site organization consisting of ambulatory clinics and hospital sitesin [place], [place], [place] and [place]. This disclosure is being madepursuant to the Care Everywhere program and may not contain all information available regarding this patient. Last updated 18.[facility] Immunizations Name Administration Dates Next Due INFLUENZA VACCINE, HIGH-DOSE , QUADR. (FLUZONE HIGH-DOSE QUADRIVALENT; 65Y+), 0.7 ML (HD-IIV4) 07/11/2016 Social History Tobacco Use Types Packs/Day Years Used Date Smoking Tobacco: Never Assessed Sex and Gender Information Value Date Recorded Sex Assigned at Not on file Gender Identity Not on file Sexual Orientation Not on file Plan of Treatment Not on file Care Teams Marble Finisher Relationship Specialty Start Date End Date Chris Gudino DO [address] [facility] [address] [address] PCP - General 02/07/22
--- OUTSIDE RECORDS SUMMARY | 2024-10-18 23:53 | XMS_ITS | Clinical Summary ---
Author Organization [facility] [employer] 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 Gender Identity Not on file Sexual Orientation Not on file Plan of Treatment Health Maintenance Due Date Last Done Comments DTAP/TDAP/TD VACCINES (1 - Tdap) 1968 FIT-DNA Q 3 years 1994 FIT/FOBT Q 1 year 1994 Flex Sig/CT Colonography Q 5 years 1994 PNEUMOCOCCAL VACCINE 65+ YEA RS (1 of 1 - PCV) 1999 ZOSTER VACCINE (1 of 2) 1999 OSTEOPOROSIS SCREENING 2014 COLORECTAL SCREENING 02/14/2022 02/15/2012, 02/15/20 12 Colorectal Cancer Screening 02/14/2022 INFLUENZA VACCINE (#1) 2024 RSV VACCINE (60+ or ) (1 - 1-dose 75+ series) 2024 Procedures Procedure Name Priority Date/Time Associated Diagnosis Comments ENDOSCOPY, COLON, SCREENING Routine 02/15/2012 from Last 3 Months or Most Recently Relevant to Health Maintenance Results * ENDOSCOPY, COLON, SCREENING (02/15/2012) Jama Hercules MD GI PROCEDURE ORDERABLES Edited [facility] from Last 3 Months or Most Recently Relevant to Health Maintenance Insurance Care Teams Molding Machine Operator Helper Relationship Specialty Start Date End Date Kalin Guevara MD [id number] [place] [address] PCP - General Internal Medicine 11/23/11
--- OUTSIDE RECORDS SUMMARY | 2024-10-18 23:53 | XMS_ITS | Clinical Summary ---
Author Organization [facility] Address [address] [place] [address] Care Team Providers Care Countersinker Balance Screw Hole Name Role Phone Chris Gudino DO Primary Care Provider [phone] Source Comments [facility],non-owned Affiliates and Associated Physician Practices is amultiple site organization consisting of ambulatory clinics and hospital sitesin [place], [place], [place] and [place]. This disclosure is being madepursuant to the Care Everywhere program and may not contain all information available regarding this patient. Last updated 18.[facility] Immunizations Name Administration Dates Next Due INFLUENZA [...] Health Maintenance Due Date Last Done Comments COLOGUARD (AGES 45-75) - COL ON CA SCREENING 1949 COLON MONITORING 1949 COLONOSCOPY - COLON CA SCREENING 1949 CT COLONOGRAPHY - COLON CA SCREENING 1949 Colorectal Cancer Screening 1949 FIT - COLON CA SCREENING 1949 FLEX SIG - COLON CA SCREENING 1949 LIPID TESTING 1949 MEDICARE AWV ? 12 MONTHS 1949 HEPATITIS C SCREENING 05/13/1967 DTAP/TDAP/TD VACCINES (1 - Tdap) 1968 PNEUMOCOCCAL VACCINE 50+ (1 of 1 - PCV) 1999 ZOSTER VACCINE (1 of 2) 1999 Respiratory Syncytial Virus (RSV) Vaccine Pt: or over 60 yrs (1 - 1-dose 75+ series) 2024 COVID-19 VACCINE (1 - 2023-2 5 season) 2024 INFLUENZA VACCINE (#1) 2024 07/11/2016 DEPRESSION SCREENING 09/18/2024 HEPATITIS B VACCINE Aged Out No longe r eligible based on patient's age to complete this topic HIB VACCINE Aged Out No longer eligi ble based on patient's age to complete this topic HPV VACCINE Aged Out No longer eligi ble based on patient's age to complete this topic MENINGOCOCCAL (Group B) VACCINE Aged Out No longer eligible based on patient's age to complete this topic MENINGOCOCCAL VACCINE Aged Out No erin kendra eligible based on patient's age to complete this topic Care Teams Countersinker Balance Screw Hole Relationship Specialty Start Date End Date Chris Gudino DO [address] [facility] [address] [place] [address] PCP - General 02/07/22
--- OUTSIDE RECORDS SUMMARY | 2024-10-18 23:53 | XMS_ITS | Patient Health Summary ---
Author Organization [facility] Address [address] [place] [address] Care Team Providers Care Recreation Center Director Name Role Phone KristieClifford crowkeesha Syed DO Primary Care Provider [phone] Note from [facility],non-owned Affiliates and Associated Physician Practices is amultiple site organization consisting of ambulatory clinics and hospital sitesin [place], [place], [place] and [place]. This disclosure is being madepursuant to the Care Everywhere program and may not contain all information available regarding this patient. Last updated 18.[facility] Immunizations * INFLUENZA VACCINE, HIGH-DOSE, QUADR. (FLUZONE HIGH-DOSE QUADRIVALENT; 65Y+), 0.7 ML (HD-IIV4)(Given 07/11/2016) Social History Tobacco Use Types Packs/Day Years Used Date Smoking Tobacco: Never Assessed Sex and Gender Information Value Date Recorded Sex Assigned at Not on file Gender Identity Not on file Sexual Orientation Not on file Procedures * DERMATOPATHOLOGY(Performed 01/18/2023) * DERMATOPATHOLOGY(Performed 12/15/2021) * DERMATOPATHOLOGY(Performed 12/03/2020) Results * DERMATOPATHOLOGY (01/18/2023 12:00 AM CDT) Only the most recent of3 resultswithin the time period is included. Case Report Dermatopathology Report ? Case: [id number] ? Authorizing Provider: ??Lonnie Webb MD ?Collected: ? 01/18/2023 12:00 AM ? Ordering Location: ? [facility] DermPath Lab ?Received: ?01/20/2023 06:40 AM ? Pathologist: ? Emilia Caputo MD ? Specimen: ?Skin, ant. neck ? 3 12:31 PM CDT DERMATOPATHOLOGY LABORATORY Final Diagnosis Specimen A. SKIN, ant. neck: BASAL CELL CARCINOMA, NODULAR TYPE (C44.41) 3 12:31 PM CDT DERMATOPATHOLOGY LABORATORY Clinical History BCCA vs. Other. Path# [id number] 3 12:31 PM CDT DERMATOPATHOLOGY LABORATORY Gross Description Specimen A: Received [...] ratio and peripheral palisading. 3 12:31 PM CDT DERMATOPATHOLOGY LABORATORY Disclaimer An external and internal positive and negative controls are appropriate for the histochemical, immunohistochemical and immunofluorescence stain(s) in this case (if any), except where stated explicitly. The performance characteristics of the stain(s) cited in this report were developed and its performance characteristic determined by the Dermatopathology Laboratory at [facility], directed by Dr. Carola Claros. These tests need not be, and therefore are not, approved by the [place] Food and Drug Administration. The tests are used for clinical purposes. Billing Codes Specimen Charges Stain Charges 86018 1 3 12:31 PM CDT DERMATOPATHOLOGY LABORATORY Embedded Images 3 12:31 PM CDT DERMATOPATHOLOGY LABORATORY Pathology/Cytolog y TISSUE SPECIMEN FROM SKIN / Unknown 01/18/2023 01/20/2023 6:40 AM CDT Lonnie Webb MD LAB - PATHOLOGY/CYTO LOGY ORDERABLES DERMATOPATHOLOGY LABORATORY [facility] - Department of Dermatology [facility] Medicine [address] [place] [address], [address] [phone] Care Teams Recreation Center Director Relationship Specialty Start Date End Date Chris Gudino DO [address] [facility] [address] [address] PCP - General 02/07/22
[2024-10-18 23:59] VITALS: BP 169/88; PULSE 82; RESP 15; TEMP 36.6; O2SAT 98
[2024-10-19 00:34] LABS: Add Urine Microscopic? YES; Appearance Urine Clear (Clear); Bacteria Urine Rare /hpf; Bilirubin Urine Negative (Negative); Blood Urine 2+ (Negative); Color Urine Yellow (Yellow); Glucose Urine UA Negative (Negative); Ketones Urine Trace mg/dL (Negative); Leukocyte Esterase Ur 1+ LEU/UL (Negative); Need Manual Microscopic Reviewed; Nitrate Urine Negative (Negative); Non Pathogenic Casts 0-2; Protein Urine 3+ mg/dL (Negative); Specific Grav Ur 1.018 (1.001-1.035); Squamous Epithelial Cell Urine None Seen /hpf (Few); Urobilinogen Urine 0.2 mg/dL (<2.0); WBC Urine >100 /hpf (0-3)
[2024-10-19 00:35] LABS: RBC Urine >100 /hpf (0-2)
--- OUTSIDE RECORDS SUMMARY | 2024-10-19 03:04 | XMS_ITS | Patient Health Summary ---
Author Organization [facility] Address [address] [place] [address] Care Team Providers Care Bush Regenerator Name Role Phone KristieClifford crowkeesha Syed DO Primary Care Provider [phone] Note from [facility],non-owned Affiliates and Associated Physician Practices is amultiple site organization consisting of ambulatory clinics and hospital sitesin [place], [place], [place] and [place]. This disclosure is being madepursuant to the Care Everywhere program and may not contain all information available regarding this patient. Last updated 18.[facility] Immunizations * INFLUENZA VACCINE, HIGH-DOSE, QUADR. (FLUZONE [...] included. Case Report Dermatopathology Report ? Case: [id number] ? Authorizing Provider: ??Lonnie Webb MD ?Collected: ? 01/18/2023 12:00 AM ? Ordering Location: ? [facility] DermPath Lab ?Received: ?01/20/2023 06:40 AM ? Pathologist: ? Emilia Caputo MD ? Specimen: ?Skin, ant. neck ? 3 12:31 PM CDT DERMATOPATHOLOGY LABORATORY Final Diagnosis Specimen A. SKIN, ant. neck: BASAL CELL CARCINOMA, NODULAR TYPE (C44.41) 3 12:31 PM CDT DERMATOPATHOLOGY LABORATORY Clinical History BCCA vs. Other. Path# [id number] 3 12:31 PM CDT DERMATOPATHOLOGY LABORATORY Gross [...] characteristic determined by the Dermatopathology Laboratory at [facility], directed by Dr. Carola Claros. These tests need not be, and therefore are not, approved by the [place] Food and Drug Administration. The tests are used for clinical purposes. Billing Codes Specimen Charges Stain Charges 20781 1 3 12:31 PM CDT DERMATOPATHOLOGY LABORATORY Embedded Images 3 12:31 PM CDT DERMATOPATHOLOGY LABORATORY Pathology/Cytolog y TISSUE SPECIMEN FROM SKIN / Unknown 01/18/2023 01/20/2023 6:40 AM CDT Lonnie Webb MD LAB - PATHOLOGY/CYTO LOGY ORDERABLES DERMATOPATHOLOGY LABORATORY [facility] - Department of Dermatology [facility] Medicine [address] [place] [address], [address] [phone] Care Teams Bush Regenerator Relationship Specialty Start Date End Date Chris Gudino DO [address] [facility] [address] [address] PCP - General 02/07/22
--- OUTSIDE RECORDS SUMMARY | 2024-10-19 03:04 | XMS_ITS | Referral Summary ---
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
--- OUTSIDE RECORDS SUMMARY | 2024-10-19 03:04 | XMS_ITS | Encounter Summary ---
Author Organization [facility] Address [address] [facility] [place] [address] Care Team Providers Care Expansion Envelope Maker Hand Name Role Phone Chris Gudino Primary Care Provider [phone] Encounter Details Date Type Department Care Team (Late st Contact Info) Description 12/15/2021 Lab Requisition [facility] DermPath Lab [address] [facility] [place] [id number] Lonnie Webb MD [address] [place] [place] [address] Social History Tobacco Use Types [...] CDT) Case Report Dermatopathology Report ? Case: [id number] ? Authorizing Provider: ??Lonnie Webb MD ?Collected: ? 12/15/2021 12:00 AM ? Ordering Location: ? [facility] DermPath Lab ?Received: ?12/15/2021 04:41 PM ? Pathologist: ? Uzma Terry MD ? Specimen: ?Skin, right postauricular ? 2 1:04 PM CDT DERMATOPATHOLOGY LABORATORY Final Diagnosis Specimen A. SKIN, right postauricular: BASAL CELL CARCINOMA, NODULAR TYPE (C44.212) 2 1:04 PM T DERMATOPATHOLOGY LABORATORY Clinical History BCCA vs other. Path # [id number]. 2 1:04 PM T DERMATOPATHOLOGY LABORATORY Gross Description Specimen A: Received is one formalin filled container labeled with the patient's name and designated right postauricular. The specimen consists of a shave biopsy measuring [id number]. Jar 0. 2 1:04 PM CDT DERMATOPATHOLOGY [...] characteristic determined by the Dermatopathology Laboratory at [facility], directed by Dr. Carola Claros. These tests need not be, and therefore are not, approved by the [place] Food and Drug Administration. The tests are used for clinical purposes. Billing Codes Specimen Charges Stain Charges 47257 1 2 1:04 PM CDT DERMATOPATHOLOGY LABORATORY Embedded Images 2 1:04 PM CDT DERMATOPATHOLOGY LABORATORY Pathology/Cytolog y TISSUE SPECIMEN FROM SKIN / Unknown 12/15/2021 12/15/2021 4:41 PM CDT Lonnie Webb MD LAB - PATHOLOGY/CYTO LOGY ORDERABLES DERMATOPATHOLOGY LABORATORY [facility] - Department of Dermatology [facility] Medicine [address] [place] [address], [address] [phone] documented in this encounter Visit Diagnoses Not on filedocumented in this encounter Care Teams Expansion Envelope Maker Hand Relationship Specialty Start Date End Date Chris Gudino DO [address] [facility] [address] [place] [address] PCP - General 02/07/22 documented as of this encounter
--- OUTSIDE RECORDS SUMMARY | 2024-10-19 03:04 | XMS_ITS | Clinical Summary ---
Author Organization [facility] Address [address] [place] [address] Care Team Providers Care Recapper Name Role Phone Chris Gudino DO Primary Care Provider [phone] Source Comments [facility],non-owned Affiliates and Associated Physician Practices is amultiple site organization consisting of ambulatory clinics and hospital sitesin [place], [place], [place] and [place]. This disclosure is being madepursuant to the Care Everywhere program and may not contain all information available regarding this patient. Last updated 18.[facility] Immunizations Name Administration Dates Next Due INFLUENZA [...] age to complete this topic Care Teams Recapper Relationship Specialty Start Date End Date Chris Gudino DO [address] [facility] [address] [place] [address] PCP - General 02/07/22
--- OUTSIDE RECORDS SUMMARY | 2024-10-19 03:04 | XMS_ITS | Referral Summary ---
Author Organization [facility] Address [address] [place] [address] Care Team Providers Care Perforator Typist Name Role Phone Chris Gudino DO Primary Care Provider [phone] Source Comments [facility],non-owned Affiliates and Associated Physician Practices is amultiple site organization consisting of ambulatory clinics and hospital sitesin [place], [place], [place] and [place]. This disclosure is being madepursuant to the Care Everywhere program and may not contain all information available regarding this patient. Last updated 18.[facility] Immunizations Name Administration Dates Next Due INFLUENZA VACCINE, HIGH-DOSE , QUADR. (FLUZONE HIGH-DOSE QUADRIVALENT; 65Y+), 0.7 ML (HD-IIV4) 07/11/2016 Social History Tobacco Use Types Packs/Day Years Used Date Smoking Tobacco: Never Assessed Sex and Gender Information Value Date Recorded Sex Assigned at Not on file Gender Identity Not on file Sexual Orientation Not on file Plan of Treatment Not on file Insurance Payer Benefit Plan / Group Subscriber ID Effective Dates Phone Address Type MEDICARE [facility] MEDICARE PART B [id number] Effective for all dates [address] [address] [place] [address] Medicare [employer] [facility] MEDICARE SUPPLEMENT [id number] Effective for all dates [address] [address] [place], [place] Commercial MEDICARE MEDICARE PART A ONLY [id number] Effective for all dates [address] [place] [address] Medicare MEDICARE MEDICARE PART A AND B [id number] 04/18/2014-Pres ent [phone] [address] [place] [address] Medicare [employer] [facility] MEDICARE SUPPLEMENT [id number] Effective for all dates [address] [place] Commercial MEDICARE MEDICARE PART A ONLY [id number] Effective for all dates [address] [place] [address] Medicare MEDICARE [place] MEDICARE [id number] 04/18/2014-Pres ent [address] [place] [address] Medicare Care Teams Perforator Typist Relationship Specialty Start Date End Date Chris Gudino DO [address] [facility] [address] [address] PCP - General 02/07/22
--- OUTSIDE RECORDS SUMMARY | 2024-10-19 03:04 | XMS_ITS | Encounter Summary ---
Author Organization [facility] Address [address] [place] [address] Care Team Providers Care Captain Cannery Tender Name Role Phone Chris Gudino Primary Care Provider [phone] Encounter Details Date Type Department Care Team (Late st Contact Info) Description 01/20/2023 Lab Requisition [facility] Care DermPath Lab [address] [facility] [place] [phone] Lonnie Webb MD [address] [facility] [place] [address] Social History Tobacco Use Types [...] CDT) Case Report Dermatopathology Report ? Case: [id number] ? Authorizing Provider: ??Lonnie Webb MD ?Collected: ? 01/18/2023 12:00 AM ? Ordering Location: ? [facility] DermPath Lab ?Received: ?01/20/2023 06:40 AM ? Pathologist: ? Emilia Caputo MD ? Specimen: ?Skin, ant. neck ? 3 12:31 PM CDT DERMATOPATHOLOGY LABORATORY Final Diagnosis Specimen A. SKIN, ant. neck: BASAL CELL CARCINOMA, NODULAR TYPE (C44.41) 3 12:31 PM T DERMATOPATHOLOGY LABORATORY Clinical History BCCA vs. Other. Path# [id number] 3 12:31 PM T DERMATOPATHOLOGY LABORATORY Gross [...] characteristic determined by the Dermatopathology Laboratory at [facility], directed by Dr. Carola Claros. These tests need not be, and therefore are not, approved by the [place] Food and Drug Administration. The tests are used for clinical purposes. Billing Codes Specimen Charges Stain Charges 26048 1 3 12:31 PM CDT DERMATOPATHOLOGY LABORATORY Embedded Images 3 12:31 PM CDT DERMATOPATHOLOGY LABORATORY Pathology/Cytolog y TISSUE SPECIMEN FROM SKIN / Unknown 01/18/2023 01/20/2023 6:40 AM CDT Lonnie Webb MD LAB - PATHOLOGY/CYTO LOGY ORDERABLES DERMATOPATHOLOGY LABORATORY [facility] - Department of Dermatology [address], [address] [phone] documented in this encounter Visit Diagnoses Not on filedocumented in this encounter Care Teams Captain Cannery Tender Relationship Specialty Start Date End Date Chris Gudino DO [address] [facility] [address] [facility] [address] [place] [address] PCP - General 02/07/22 documented as of this encounter
--- OUTSIDE RECORDS SUMMARY | 2024-10-19 03:04 | XMS_ITS | Clinical Summary ---
Author Organization [facility] Address [address] [place] [address] Care Team Providers Care Packer Insulation Name Role Phone Chris Gudino MD Primary Care Provider [phone] Allergies Active Allergy Reactions Criticality Noted Date [...] on file Legal Sex Male 11:35 PM UMBRELLA TIPPER Gender Identity Not on file Sexual Orientation [...] of Treatment Not on file Insurance MEDICARE [facility] BENEFIT PLAN Care Teams Packer Insulation Relationship Specialty Start Date End Date Chris Gudino MD [address] [facility] [address] [place] [address] PCP - General 11/21/11
--- OUTSIDE RECORDS SUMMARY | 2024-10-19 03:04 | XMS_ITS | Continuity of Care Document ---
Author Organization [facility] Address [address] [place] [address] Phone Care Team Providers Care Supervisor Grain And Yeast Plants Name Role Phone Unavailable Unavailable Unavailable Procedures [...] Date Provider Providers Copied on Encounter [facility], [address], [id number], [place] tel:[phone] [facility] [facility] No Information [address] [facility], [address] [facility] [address], [place], [place], [id number], [place] tel:[phone] [facility] No Information 7 No [address] [facility], [address], [place], [place], [id number], [place] tel:[phone] [facility] No Information 6 No [address] [facility], [address] [facility] [address], [place], [id number], tel:[phone] [facility] [place] No Information 3200 6 No Information Office/outpat ient visit,est, [facility], [address] [facility] [address], [place], [place], [id number], tel:[phone] [facility] No Information 0 8200 6 No Information [facility], [address] [facility] [address], [place], [place], [id number], tel:[phone] [place] [address] No Information 0 6200 6 No Information Office/outpat ient visit,[facility], [facility], [address] [address], [place], [place], [id number], tel:[phone] [facility] No Information 0200 6 No Information Family History Family Member Type Diagnosis Age At Onset No Information Payers Payer name Insurance type Covered democrat ID Authorchristosa tilenny(s) [facility] [id number] Social History Type Description Quantity Date Captured [...]
--- OUTSIDE RECORDS SUMMARY | 2024-10-19 03:04 | XMS_ITS | Encounter Summary ---
Author Organization [facility] Address [address] [place] [address] Care Team Providers Care Tailor Fitter Name Role Phone Chris Gudino Primary Care Provider [phone] Encounter Details Date Type Department Care Team (Late st Contact Info) Description 12/04/2020 Lab Requisition [facility] Care DermPath Lab [address] [facility] [facility], [place] [id number] Lonnie Webb MD [address] [facility] [place] [address] Social History Tobacco Use Types [...] CDT) Case Report Dermatopathology Report ? Case: [id number] ? Authorizing Provider: ??Lonnie Webb MD ?Collected: ? 12/03/2020 03:33 AM ? Ordering Location: ? [facility] DermPath Lab ?Received: ?12/04/2020 06:42 AM ? Pathologist: ? Dmitry Claros MD ? Specimen: ?Skin, left cheek ? 4:07 PM T DERMATOPATHOLOGY LABORATORY Final Diagnosis Specimen A. SKIN, left cheek: BASAL CELL CARCINOMA, NODULAR TYPE (C44.319) 4:07 PM [facility] DERMATOPATHOLOGY LABORATORY Clinical History BCCA vs angioma. Path# [id number]. 4:07 PM [facility] DERMATOPATHOLOGY LABORATORY Gross Description Specimen A: Received is one formalin filled container labeled with the patient's name and designated left cheek. The specimen consists of a shave biopsy measuring [id number]. Jar 0. 4:07 PM [facility] DERMATOPATHOLOGY LABORATORY Microscopic Description Specimen A. SKIN, [...] characteristic determined by the Dermatopathology Laboratory at [facility], directed by Dr. Carola Claros. These tests need not be, and therefore are not, approved by the [place] Food and Drug Administration. The tests are used for clinical purposes. Billing Codes Specimen Charges Stain Charges 70489 1 1 4:07 PM CDT DERMATOPATHOLOGY LABORATORY Embedded Images 1 4:07 PM CDT DERMATOPATHOLOGY LABORATORY Pathology/Cytolo gy TISSUE SPECIMEN FROM SKIN / Unknown 12/03/2020 3:33 AM CDT 12/04/2020 6:42 AM CDT Lonnie Webb MD LAB - PATHOLOGY/CYTO LOGY ORDERABLES DERMATOPATHOLOGY LABORATORY [facility] - Department of Dermatology [facility] Medicine [address] [place] [address], [address] [phone] documented in this encounter Visit Diagnoses Not on filedocumented in this encounter Care Teams Tailor Fitter Relationship Specialty Start Date End Date Chris Gudino DO [address] [facility] [address] [place] [address] PCP - General 02/07/22 documented as of this encounter
--- OUTSIDE RECORDS SUMMARY | 2024-10-19 03:04 | XMS_ITS | Clinical Summary ---
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
--- NOTE | 2024-10-19 03:12 | ED_ITS ---
HPI - Male Genitourinary General Chief complaint: Urogenital-Male Stated complaint: I think I have a UTI , HEMATURIA Time Seen by Provider: 10/19/24 02:55 History of Present Illness HPI Narrative: Patient is a 74-year-old male who presents ER with concerns for UTI. Began having dysuria this evening as well as urinary frequency. No fevers chills or sweats. No abdominal pain. Has history of UTI in the past. Chart review shows UTI and Khalida. Related Data Home Medications ?Medication ?Instructions ?Recorded ?Confirmed ?Last Taken ?Type acetaminophen 500 mg tablet 1,000 mg PO Q6H PRN Pain 07/17/19 08/23/24 Unknown History (Tylenol Extra Strength) finasteride 5 mg tablet 5 mg PO DAILY 07/17/19 08/23/24 Unknown History glucosamine-chondroitin 250 mg-200 1 tablet PO DAILY 07/17/19 08/23/24 Unknown History mg tablet (Osteo Bi-Flex) tamsulosin 0.4 mg capsule 0.4 mg PO DAILY 07/19/19 08/23/24 Unknown History loratadine 10 mg tablet (Claritin) 10 mg PO DAILY 01/26/22 08/23/24 Unknown History Allergies Allergy/AdvReac Type Severity Reaction Status Date / Time atorvastatin Allergy Intermediate Muscle pain Verified 08/23/24 09:28 Sulfa (Sulfonamide Allergy Mild Vomiting Verified 08/23/24 09:28 Antibiotics) adhesive tape AdvReac Mild Rash Verified 08/23/24 09:28 Review of Systems Constitutional: Constitutional: Reports no additional constitutional complaints Gastrointestinal: Gastrointestinal: Reports no additional gastrointestinal complaints Genitourinary: Genitourinary: Reports no additional male genitourinary complaints [facility] Past Medical History Medical History BPH (benign prostatic hyperplasia) Fatigue Hx of ventricular fibrillation Hyperlipidemia Hypertension Obstructive sleep apnea PAF (paroxysmal atrial fibrillation) Since 1999 Surgical History Surgical History H/O inguinal hernia repair History of medial meniscus repair of left knee Status post biopsy of skin Family History Family History Father Carcinoma of colon Patient's father is Mother Family history of heart disease in male family member before age 55 Patient's mother is Social History Social History Smoking status: Never smoker Second hand tobacco smoke exposure: No Alcohol intake: never Substance use: never Substance use type: does not use Lack of Transportation: No Lack of Food: Never True Current Housing: I Have Housing Concerned About Future Housing: No Difficulty Paying Gas/Electric Bills: No Difficulty Paying for Meds: No Currently Unemployed: No Education: High School Diploma/GED Difficulty w/ Childcare or Family Care: No Living arrangements: with family Spiritual care concerns: No Exam Narrative: GENERAL: Well-appearing, well-nourished, and in no acute distress. HEAD: Normocephalic, atraumatic. CHEST: Clear to auscultation. No respiratory distress. HEART: Regular rate and rhythm. Normal peripheral pulses. ABDOMEN: Soft, nontender, nondistended. No CVA tenderness. EXTREMITIES: Normal range of motion. No edema. NEURO: Alert and oriented x3. PSYCH: Normal mood and affect. Course Course Emergency Course: Patient treated with Augmentin previously with success, E coli was sensitive to Augmentin. One dose here and discharged with prescription. No urinary retention. Vital Signs Vital signs: Vital Signs Temperature 97.8 F 10/18/24 23:59 Pulse Rate 82 10/18/24 23:59 Respiratory Rate 15 10/18/24 23:59 Blood Pressure 169/88 H 10/18/24 23:59 Pulse Oximetry 98 10/18/24 23:59 Oxygen Delivery Room Air 10/18/24 23:59 Temperature 97.8 F 10/18/24 23:59 Pulse Rate 82 10/18/24 23:59 Respiratory Rate 15 10/18/24 23:59 Blood Pressure 169/88 H 10/18/24 23:59 Pulse Oximetry 98 10/18/24 23:59 Oxygen Delivery Room Air 10/18/24 23:59 MDM - Male Genitourinary Lab Data Labs: Lab Results 10/19/24 Range/Units 00:03 Urine Color Yellow (Yellow) Urine Appearance Clear (Clear) Urine pH 6.0 (5.0-9.0) Ur Specific [place] 1.018 (1.001-1.035) Urine Protein 3+ H (Negative) mg/dL Urine Glucose (UA) Negative (Negative) mg/dL Urine Ketones Trace H (Negative) mg/dL Ur Blood (Man) 2+ H (Negative) Urine Nitrate Negative (Negative) Urine Bilirubin Negative (Negative) Urine Urobilinogen 0.2 (<2.0) mg/dL Add Ur Microanalysis Reviewed Leukocyte Esterase Rfl 1+ H (Negative) ANGELICA/UL Urine RBC >100 H (0-2) /hpf Urine WBC >100 H (0-3) /hpf Ur Squamous Epith Cells None seen (Few) /hpf Urine Bacteria Rare /hpf Urine Casts 0-2 Discharge Plan Discharge Clinical Impression: Acute UTI Patient Disposition: Home, Self-Care Condition: Stable Instructions: Antibiotic Form, Urinary Tract Infection in Men (ED) Additional Instructions: You should return to the emergency department if you develop severe nausea and vomiting and are unable to keep liquids down, if you develop severe back/flank or stomach pain, or if your symptoms are not clearly improving at home. Patient Language: Yoruba Prescriptions: New amoxicillin-pot clavulanate 875-125 mg tablet 1 tablet PO Q12H Qty: 20 0RF amoxicillin-pot clavulanate 875-125 mg tablet 1 tablet PO Q12H Qty: 20 0RF No Action acetaminophen [Tylenol Extra Strength] 500 mg tablet 1,000 mg PO Q6H PRN (Reason: Pain) glucosamine-chondroitin [Osteo Bi-Flex] 250-200 mg tablet 1 tablet PO DAILY finasteride 5 mg tablet 5 mg PO DAILY tamsulosin 0.4 mg capsule 0.4 mg PO DAILY Patient Comments: Take as needed loratadine [Claritin] 10 mg Tablet 10 mg PO DAILY flecainide 100 mg tablet See Rx Instructions .ROUTE .COMPLEX Qty: 180 2RF Dose Instruction: TAKE 1 TABLET EVERY 12 HOURS Rx Instructions: TAKE 1 TABLET EVERY 12 HOURS losartan-hydrochlorothiazide 50-12.5 mg tablet 1 tablet PO DAILY Qty: 90 3RF Eliquis 5 mg tablet See Rx Instructions .ROUTE .COMPLEX Qty: 180 1RF Dose Instruction: TAKE 1 TABLET TWICE A DAY Rx Instructions: TAKE 1 TABLET TWICE A DAY rosuvastatin [Crestor] 10 mg tablet 10 mg PO DAILY Qty: 90 3RF metoprolol tartrate 50 mg tablet See Rx Instructions .ROUTE .COMPLEX Qty: 180 3RF Dose Instruction: TAKE 1 TABLET EVERY 12 HOURS Rx Instructions: TAKE 1 TABLET EVERY 12 HOURS Follow-up/Referrals: Brennen Hewitt MD [Primary Care Provider] - 1 Week
[2024-10-19] MEDS: AMOXICILLIN/CLAVULANATE K 875-125 MG TAB 1 TABLET PO (03:20)
== END 2024-10-19 03:34 | disposition home or self-care (01) ==
PROVIDERS: Emergency Provider Emergency Medicine; PCP Urology
DX: N39.0 Urinary tract infection, site not specified (principal); I10 Essential (primary) hypertension; I48.0 Paroxysmal atrial fibrillation; E78.5 Hyperlipidemia, unspecified; N40.0 Benign prostatic hyperplasia without lower urinary tract symptoms; G47.33 Obstructive sleep apnea (adult) (pediatric); Z79.01 Long term (current) use of anticoagulants; Z79.899 Other long term (current) drug therapy
CPT/HCPCS: 81001; 87077; 87086; 87147; 87181; 87186; 99283; A9270

== ENCOUNTER 2025-04-10 07:00 | Emergency (ER) | payer MEDICARE, OTHER, SELFPAY ==
--- NOTE | ~2025-04-10 | XR_ITS ---
XR finger 3rd LT min 2V 04/10/2025 08:36 Indication: Laceration with head tremor Procedure: 4 views left third finger Comparison: No prior studies for comparison. Findings: No fracture or traumatic malalignment. There is polyarticular osteoarthritis. No focal soft tissue abnormality. No foreign bodies. Impression: 1: No acute fracture. Reviewed, dictated and finalized at location A. Impression: 1: No acute fracture.
--- OUTSIDE RECORDS SUMMARY | 2025-04-10 07:02 | XMS_ITS | Clinical Summary ---
Author Organization [facility] Address [address] [place] [address] Care Team Providers Care Precision Machine Operator Name Role Phone Kristietristin Chriskeesha Syed DO Primary Care Provider [phone] Source Comments [facility],non-owned Affiliates and Associated Physician Practices is amultiple site organization consisting of ambulatory clinics and hospital sitesin [place], [place], [place] and [place]. This disclosure is being madepursuant to the Care Everywhere program and may not contain all information available regarding this patient. Last updated 18.[facility] Immunizations Immunization Administration Dates Next Due INFLUENZA VACCINE, HIGH-DOSE , QUADR. (FLUZONE HIGH-DOSE QUADRIVALENT; 65Y+), 0.7 ML (HD-IIV4) 07/11/2016 Social History Tobacco Use Types Packs/Day Years Used Date Smoking Tobacco: Never Assessed Sex and Gender Information Value Date Recorded Sex Assigned at Not on file Legal Sex Male 10:44 AM CDT Gender Identity Not on file Sexual Orientation [...] SCREENING 1950 LIPID TESTING 1950 MEDICARE AWV 12 MONTHS 1950 HEPATITIS C SCREENING 05/13/1967 DTAP/TDAP/TD VACCINES (1 - Tdap) 1968 PNEUMOCOCCAL VACCINE 50+ (1 of 1 - PCV) 1999 ZOSTER VACCINE (1 of 2) 1999 Respiratory Syncytial Virus (RSV) Vaccine Pt: or over 60 yrs (1 - 1-dose 75+ series) 2024 COVID-19 VACCINE (1 - 2023-2 5 season) 2024 DEPRESSION SCREENING 09/18/2024 INFLUENZA VACCINE (#1) 2025 07/11/2016 HEPATITIS B VACCINE Aged Out No longe r eligible based on patient's age to complete this topic HIB VACCINE Aged Out No longer eligi ble based on patient's age to complete this topic HPV VACCINE Aged Out No longer eligi ble based on patient's age to complete this topic MENINGOCOCCAL (Group B) VACC INE SHARED DECISION-MAKING Aged Out No longer eligibl e based on patient's age to complete this topic MENINGOCOCCAL GROUPS A/C/Y/W VACCINE Aged Out No longer eligible b ased on patient's age to complete this topic Insurance [employer] [facility] MEDICARE MEDICARE MEDICARE [facility] MEDICARE MEDICARE Care Teams Precision Machine Operator Relationship Specialty Start Date End Date Chris Gudino DO [address] [facility] [place] [address] PCP - General 02/07/22
--- OUTSIDE RECORDS SUMMARY | 2025-04-10 07:02 | XMS_ITS | Clinical Summary ---
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 Gender Identity Not on file Sexual Orientation Not on file Plan of Treatment Health Maintenance Due Date Last Done Comments DTAP/TDAP/TD VACCINES (1 - Tdap) 1968 FIT-DNA Q 3 years 1994 FIT/FOBT Q 1 year 1994 Flex Sig/CT Colonography Q 5 years 1994 PNEUMOCOCCAL VACCINE 50+ YEA RS (1 of 1 - PCV) 1999 ZOSTER VACCINE (1 of 2) 1999 OSTEOPOROSIS SCREENING 2014 COLORECTAL SCREENING 02/14/2022 02/15/2012, 02/15/20 12 Colorectal Cancer Screening 02/14/2022 RSV VACCINE (60+ or ) (1 - 1-dose 75+ series) 2024 INFLUENZA VACCINE (#1) 2025 Procedures Procedure Name Priority Date/Time Associated Diagnosis Comments ENDOSCOPY, COLON, SCREENING Routine 02/15/2012 from Last 3 Months or Most Recently Relevant to Health Maintenance Results * ENDOSCOPY, COLON, SCREENING (02/15/2012) Jama Hercules MD GI PROCEDURE ORDERABLES [facility] from Last 3 Months or Most Recently Relevant to Health Maintenance Insurance Care Teams Plastic Design Applier Relationship Specialty Start Date End Date Kalin Guevara MD [address] [place] [address] PCP - General Internal Medicine 11/23/11
--- OUTSIDE RECORDS SUMMARY | 2025-04-10 07:02 | XMS_ITS | Encounter Summary ---
Author Organization [facility] Address [address] [facility] [place] [address] Care Team Providers Care Commodity Broker Name Role Phone Chris Gudino DO Primary Care Provider [phone] Encounter Details Date Type Department Care Team (Late st Contact Info) Description 01/20/2023 Lab Requisition [facility] DermPath Lab [address] [facility] [place] [phone] Lonnie Webb MD [address] [place] [address] Social History Tobacco Use Types [...] 12:00 AM CDT) Case Report Dermatopathology Report Case: [id number] Authorizing Provider: Lonnie Webb MD Collected: 01/18/2023 12:00 AM Ordering Location: [facility] Care DermPath Lab Received: 01/20/2023 06:40 AM Pathologist: Emilia Caputo MD Specimen: Skin, ant. neck 12:31 PM CDT DERMATOPATHOLOGY LABORATORY Final Diagnosis Specimen A. SKIN, ant. neck: BASAL CELL CARCINOMA, NODULAR TYPE (C44.41) 3 12:31 PM CDT DERMATOPATHOLOGY LABORATORY at 1231 CDT Clinical History BCCA vs. Other. Path# [id number] 3 12:31 PM CDT DERMATOPATHOLOGY LABORATORY Gross Description Specimen A: Received is one formalin filled container labeled with the patient's name and designated ant. neck. The specimen consists of a shave biopsy measuring 7x5x1 mm. Jar 0. 12:31 PM CDT DERMATOPATHOLOGY LABORATORY Microscopic Description Specimen A. SKIN, ant. neck: Within the dermis there are aggregates of basaloid cells with a high nuclear to cytoplasmic ratio and peripheral palisading. 12:31 PM CDT DERMATOPATHOLOGY LABORATORY Disclaimer An external and internal positive and negative controls are appropriate for the histochemical, immunohistochemical and immunofluorescence stain(s) in this case (if any), except where stated explicitly. The performance characteristics of the stain(s) cited in this report were developed and its performance characteristic determined by the Dermatopathology Laboratory at [facility], directed by Dr. Carola Claros. These tests need not be, and therefore are not, approved by the [place] Food and Drug Administration. The tests are used for clinical purposes. Billing Codes Specimen Charges Stain Charges 94255 1 12:31 PM CDT DERMATOPATHOLOGY LABORATORY Embedded Images 12:31 PM CDT DERMATOPATHOLOGY LABORATORY Pathology/Cytolog y TISSUE SPECIMEN FROM SKIN / Unknown 01/18/2023 01/20/2023 6:40 AM CDT us Lonnie Webb MD LAB - PATHOLOGY/CYTOLOGY ORDER ALTHEA Final Result DERMATOPATHOLOGY LABORATORY [facility] - Department of Dermatology [address], [address] [phone] documented in this encounter Visit Diagnoses Not on filedocumented in this encounter Care Teams Commodity Broker Relationship Specialty Start Date End Date Chris Gudino DO [address] [facility] [facility] [address] [place] [address] PCP - General 02/07/22 documented as of this encounter
--- OUTSIDE RECORDS SUMMARY | 2025-04-10 07:02 | XMS_ITS | Clinical Summary ---
Author Organization [facility] Address [address] [place] [address] Care Team Providers Care Insole Presser Name Role Phone Chris Gudino MD Primary Care Provider [phone] Allergies Active Allergy Reactions Criticality Noted Date [...] 02/20/2013 Overview (12/21/2016): HYPERLIPIDEMIA NEC/NOS Atrial fibrillation 11/20/2012 Overview (12/22/2016): ATRIAL FIBRILLATION Hypertension 08/14/2012 Overview (12/21/2016): HYPERTENSION NOS Osteoarthritis 08/14/2012 Overview (12/22/2016): OSTEOARTHROS NOS-UNSPEC Insomnia 08/14/2012 Overview (12/22/2016): INSOMNIA NEC Immunizations Immunization Administration Dates Next Due Hep B Vaccine [...] History Medical History Date Comments Atrial fibrillation (HCC) Atrial fibrillation Hx Other Medical Bilateral [...] on file Legal 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
--- OUTSIDE RECORDS SUMMARY | 2025-04-10 07:02 | XMS_ITS | Referral Summary ---
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
--- OUTSIDE RECORDS SUMMARY | 2025-04-10 07:02 | XMS_ITS | Encounter Summary ---
Author Organization [facility] Address [address] [place] [address] Care Team Providers Care Strategic Partnership Manager Name Role Phone Chris Gudino DO Primary Care Provider [phone] Encounter Details Date Type Department Care Team (Late st Contact Info) Description 12/04/2020 Lab Requisition [facility] Care DermPath Lab [address] [facility] [place] [phone] Lonnie Webb MD [address] [facility] [address] Social History Tobacco Use Types [...] 3:33 AM CDT) Case Report Dermatopathology Report Case: [id number] Authorizing Provider: Lonnie Webb MD Collected: 12/03/2020 03:33 AM Ordering Location: [facility] Care DermPath Lab Received: 12/04/2020 06:42 AM Pathologist: Dmitry Claros MD Specimen: Skin, left cheek 03/22/202 1 4:07 PM CDT DERMATOPATHOLOGY LABORATORY Final Diagnosis Specimen A. SKIN, left cheek: BASAL CELL CARCINOMA, NODULAR TYPE (C44.319) 4:07 PM CDT DERMATOPATHOLOGY LABORATORY at 1607 CDT Clinical History BCCA vs angioma. Path# [id number]. 4:07 PM CDT DERMATOPATHOLOGY LABORATORY Gross Description Specimen A: Received is one formalin filled container labeled with the patient's name and designated left cheek. The specimen consists of a shave biopsy measuring [id number]. Jar 0. 4:07 PM CDT DERMATOPATHOLOGY LABORATORY Microscopic Description Specimen A. SKIN, left cheek: Within the dermis there are aggregates of basaloid cells with a high nuclear to cytoplasmic ratio and peripheral palisading. 4:07 PM CDT DERMATOPATHOLOGY LABORATORY Disclaimer An external and internal positive and negative controls are appropriate for the histochemical, immunohistochemical and immunofluorescence stain(s) in this case (if any), except where stated explicitly. The performance characteristics of the stain(s) cited in this report were developed and its performance characteristic determined by the Dermatopathology Laboratory at [facility], directed by Dr. Carola Claros. These tests need not be, and therefore are not, approved by the [place] Food and Drug Administration. The tests are used for clinical purposes. Billing Codes Specimen Charges Stain Charges 46214 1 4:07 PM CDT DERMATOPATHOLOGY LABORATORY Embedded Images 4:07 PM CDT DERMATOPATHOLOGY LABORATORY Pathology/Cytolo gy TISSUE SPECIMEN FROM SKIN / Unknown 12/03/2020 3:33 AM CDT 12/04/2020 6:42 AM CDT us Lonnie Webb MD LAB - PATHOLOGY/CYTOLOGY ORDER ALTHEA Final Result DERMATOPATHOLOGY LABORATORY [facility] - Department of Dermatology [address], [address] [phone] documented in this encounter Visit Diagnoses Not on filedocumented in this encounter Care Teams Strategic Partnership Manager Relationship Specialty Start Date End Date Chris Gudino DO [address] [facility] [address] [address] PCP - General 02/07/22 documented as of this encounter
--- OUTSIDE RECORDS SUMMARY | 2025-04-10 07:02 | XMS_ITS | Encounter Summary ---
Author Organization [facility] Address [address] [facility] [place] [address] Care Team Providers Care Lending Activities Supervisor Name Role Phone Chris Gudino DO Primary Care Provider [phone] Encounter Details Date Type Department Care Team (Late st Contact Info) Description 12/15/2021 Lab Requisition [facility] Care DermPath Lab [address] [facility] [place] [id number] Lonnie Webb MD [address] [facility] [place] [address] Social History Tobacco Use Types [...] AM CDT) Case Report Dermatopathology Report Case: [id number] Authorizing Provider: Lonnie Webb MD Collected: 12/15/2021 12:00 AM Ordering Location: [facility] Care DermPath Lab Received: 12/15/2021 04:41 PM Pathologist: Uzma Terry MD Specimen: Skin, right postauricular 2 1:04 PM CDT DERMATOPATHOLOGY LABORATORY Final Diagnosis Specimen A. SKIN, right postauricular: BASAL CELL CARCINOMA, NODULAR TYPE (C44.212) 2 1:04 PM CDT DERMATOPATHOLOGY LABORATORY at 1304 CDT Clinical History BCCA vs other. Path # [id number]. 2 1:04 PM CDT DERMATOPATHOLOGY LABORATORY Gross Description Specimen A: Received is one formalin filled container labeled with the patient's name and designated right postauricular. The specimen consists of a shave biopsy measuring [id number]. Jar 0. 2 1:04 PM CDT DERMATOPATHOLOGY LABORATORY Microscopic Description Specimen A. SKIN, right postauricular: Within the dermis there are aggregates of basaloid cells with a high nuclear to cytoplasmic ratio and peripheral palisading. 2 1:04 PM CDT DERMATOPATHOLOGY LABORATORY Disclaimer An external and internal positive and negative controls are appropriate for the histochemical, immunohistochemical and immunofluorescence stain(s) in this case (if any), except where stated explicitly. The performance characteristics of the stain(s) cited in this report were developed and its performance characteristic determined by the Dermatopathology Laboratory at [facility], directed by Dr. Carola Claros. These tests need not be, and therefore are not, approved by the [place] Food and Drug Administration. The tests are used for clinical purposes. Billing Codes Specimen Charges Stain Charges 88231 1 2 1:04 PM CDT DERMATOPATHOLOGY LABORATORY Embedded Images 2 1:04 PM CDT DERMATOPATHOLOGY LABORATORY Pathology/Cytolog y TISSUE SPECIMEN FROM SKIN / Unknown 12/15/2021 12/15/2021 4:41 PM CDT us Lonnie Webb MD LAB - PATHOLOGY/CYTOLOGY ORDER ALTHEA Final Result DERMATOPATHOLOGY LABORATORY [facility] - Department of Dermatology [address], [address] [phone] documented in this encounter Visit Diagnoses Not on filedocumented in this encounter Care Teams Lending Activities Supervisor Relationship Specialty Start Date End Date Chris Gudino DO [address] [facility] [address] [facility] 21 [place] [address] PCP - General 02/07/22 documented as of this encounter
--- OUTSIDE RECORDS SUMMARY | 2025-04-10 07:02 | XMS_ITS | Continuity of Care Document ---
Author Organization [facility] Address [address] [place] [address] Phone Care Team Providers Care Clerk Specialist Name Role Phone Unavailable Unavailable Unavailable Procedures [...] Date Provider Providers Copied on Encounter [facility], [address], [id number], [place] tel:[phone] [facility] No Information 7 No Information [facility], [address] [facility] [address], [place], [place], [id number], [place] tel:[phone] [facility] No Information 7 No Information [facility], [address] [facility] [address], [place], [place], [address], [place] tel:[phone] [facility] No Information 6 No Information [facility], [address] [facility] [address], [place], [address], tel:[phone] [facility] No Information 3200 6 No Information Office/outpat ient visit,est, [facility], [address] [facility] [address], [place], [place], [id number], tel:[phone] [facility] No Information 0 8200 6 No Information [facility], [address] [facility] [address], [place], [place], [id number], tel:[phone] [place] [address] No Information 0 6200 6 No Information Office/outpat ient visit,[facility], [facility], [address] [address], [place], [place], [address], tel:[phone] [facility] No Information 0200 6 No Information Family History Family Member Type Diagnosis Age At Onset No Information Payers Payer name Insurance type Covered libertarian ID Authorchristosa tilenny(s) [facility] [id number] Social History Type Description Quantity Date Captured [...]
[2025-04-10] MEDS: TETANUS,DIPHTHERIA,AC PERTUSSIS ADULT (0.5 ML) BOOSTRIX IM (08:45)
--- NOTE | 2025-04-10 09:19 | ED.UPPEXIN ---
HPI - Extremity Injury (Upper) General Chief Complaint: Extremity Injury, Upper Stated Complaint: trim part of finger while weed trimming Time Seen by Provider: 04/10/25 08:27 Source: patient Mode of arrival: ambulatory Limitations: no limitations History of Present Illness HPI narrative: This is a 74-year-old male that presents to the emergency department for injury to the left 3rd finger. Reports he accidentally cut the tip off trimming weeds. Patient takes Eliquis for history of atrial fibrillation. He is not up-to-date on tetanus. Denies decreased range of motion or numbness. Related Data Home Medications ?Medication ?Instructions ?Recorded ?Confirmed ?Last Taken ?Type acetaminophen 500 mg tablet 1,000 mg PO Q6H PRN Pain 07/17/19 01/28/25 Unknown History (Tylenol Extra Strength) finasteride 5 mg tablet 5 mg PO DAILY 07/17/19 01/28/25 Unknown History glucosamine-chondroitin 250 mg-200 1 tablet PO DAILY 07/17/19 01/28/25 Unknown History mg tablet (Osteo Bi-Flex) tamsulosin 0.4 mg capsule 0.4 mg PO DAILY 07/19/19 01/28/25 Unknown History loratadine 10 mg tablet (Claritin) 10 mg PO DAILY 01/26/22 01/28/25 Unknown History Allergies Allergy/AdvReac Type Severity Reaction Status Date / Time atorvastatin Allergy Intermediate Muscle pain Verified 04/10/25 08:17 Sulfa (Sulfonamide Allergy Mild Vomiting Verified 04/10/25 08:17 Antibiotics) adhesive tape AdvReac Mild Rash Verified 04/10/25 08:17 Review of Systems Review of Systems: All systems reviewed & are unremarkable except as noted in HPI and below PMFSH Past Medical History Medical History BPH (benign prostatic hyperplasia) Obstructive sleep apnea PAF (paroxysmal atrial fibrillation) Since 1999 Hx of ventricular fibrillation Fatigue Hyperlipidemia Hypertension Surgical History Surgical History H/O inguinal hernia repair History of medial meniscus repair of left knee Status post biopsy of skin Family History Family History Father Carcinoma of colon Patient's father is Mother Family history of heart disease in male family member before age 55 Patient's mother is Social History Social History Smoking status: Never smoker Second hand tobacco smoke exposure: No Alcohol intake: never Substance use: never Substance use type: does not use Lack of Transportation: No Lack of Food: Never True Current Housing: I Have Housing Concerned About Future Housing: No Difficulty Paying Gas/Electric Bills: No Difficulty Paying for Meds: No Currently Unemployed: No Education: High School Diploma/GED Difficulty w/ Childcare or Family Care: No Living arrangements: with family Spiritual care concerns: No Exam Narrative: GENERAL: Well-appearing, well-nourished, and in no acute distress. HEAD: Normocephalic, atraumatic. EYES: EOMI. EXTREMITIES: Normal range of motion. No edema. Left third finger with tip amputation some involvement at the distal end of the nail SKIN: Warm, dry, no rash. NEURO: No focal deficits. Alert and oriented x3. PSYCH: Normal mood and affect Course Vital Signs Vital signs: Vital Signs Temperature 97.9 F 04/10/25 09:22 Pulse Rate 70 04/10/25 09:22 Respiratory Rate 18 04/10/25 09:22 Blood Pressure 152/99 H 04/10/25 09:22 Pulse Oximetry 100 04/10/25 09:22 Temperature 97.9 F 04/10/25 09:22 Pulse Rate 70 04/10/25 09:22 Respiratory Rate 18 04/10/25 09:22 Blood Pressure 152/99 H 04/10/25 09:22 Pulse Oximetry 100 04/10/25 09:22 Procedures Laceration Laceration 1: Date: 04/10/25 Time: 09:27 Site: hand Side (If applicable): left Size (cm): 1 Description: other (tip amputation) Depth: simple, single layer Pre-repair: irrigated ====== Skin Level ====== ====== Subcutaneous Layer ====== ====== Muscle Layer ====== ====== Tendon Layer ====== Dressing: Bleeding controlled, dressed with antibiotic ointment, nonstick, kerlix and coban MDM - Extremity Injury (Upper) MDM Narrative Medical decision making narrative: Patient presents the emergency department for tip of the finger amputation. Mild involvement at the distal portion of the nail. Bleeding was controlled, dressed with antibiotic ointment, nonstick, Kerlix, Coban. X-ray without acute osseous abnormalities. Patient updated on tetanus vaccination. Will be given information for follow-up with Hand surgery. He was given warnings to return to the ER Differential Diagnosis Differential diagnosis: Likely other (laceration, abrasion) Imaging Data Radiologist's impression: ITS Impressions Finger X-Ray 04/10/25 08:38 Impression: 1: No acute fracture. Critical Care Time Critical Care Time Critical Care Time: No Discharge Plan Discharge Clinical Impression: Finger laceration Qualifiers: Encounter type: initial encounter Finger: middle finger Damage to nail status: with damage Foreign body presence: without foreign body Laterality: left Qualified Code(s): S61.313A - Laceration without foreign body of left middle finger with damage to nail, initial encounter Patient Disposition: Home Condition: Stable Instructions: Laceration Without Closure (ED) Additional Instructions: Return to the emergency department if you experience fever, redness or swelling of your wound, abnormal drainage from your wound, or any other symptoms that are concerning to you. Apply antibiotic ointment daily. Do not soak the wound. Clean with mild soap and water daily Follow-up with your primary care doctor for wound check Patient Language: Korean Prescriptions: No Action acetaminophen [Tylenol Extra Strength] 500 mg tablet 1,000 mg PO Q6H PRN (Reason: Pain) glucosamine-chondroitin [Osteo Bi-Flex] 250-200 mg tablet 1 tablet PO DAILY finasteride 5 mg tablet 5 mg PO DAILY tamsulosin 0.4 mg capsule 0.4 mg PO DAILY Patient Comments: Take as needed loratadine [Claritin] 10 mg Tablet 10 mg PO DAILY Eliquis 5 mg tablet See Rx Instructions .ROUTE .COMPLEX Qty: 180 1RF Dose Instruction: TAKE 1 TABLET TWICE A DAY Rx Instructions: TAKE 1 TABLET TWICE A DAY rosuvastatin [Crestor] 10 mg tablet 10 mg PO DAILY Qty: 90 3RF metoprolol tartrate 50 mg tablet See Rx Instructions .ROUTE .COMPLEX Qty: 180 3RF Dose Instruction: TAKE 1 TABLET EVERY 12 HOURS Rx Instructions: TAKE 1 TABLET EVERY 12 HOURS flecainide 100 mg tablet See Rx Instructions .ROUTE .COMPLEX Qty: 180 2RF Dose Instruction: TAKE 1 TABLET EVERY 12 HOURS Rx Instructions: TAKE 1 TABLET EVERY 12 HOURS losartan-hydrochlorothiazide 50-12.5 mg tablet See Rx Instructions .ROUTE .COMPLEX Qty: 90 3RF Dose Instruction: TAKE 1 TABLET DAILY Rx Instructions: TAKE 1 TABLET DAILY Follow-up/Referrals: Carlito Lopez MD [Physician] - Chino Hunt APRN [Primary Care Provider] -
[2025-04-10 09:22] VITALS: BP 152/99; PULSE 70; RESP 18; TEMP 36.6; O2SAT 100
[2025-04-10] MEDS: ACETAMINOPHEN 500 MG TABLET 1000 MG PO (09:29)
--- OUTSIDE RECORDS SUMMARY | 2025-04-10 09:38 | XMS_ITS | Clinical Summary ---
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
--- OUTSIDE RECORDS SUMMARY | 2025-04-10 09:38 | XMS_ITS | Clinical Summary ---
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
--- OUTSIDE RECORDS SUMMARY | 2025-04-10 09:38 | XMS_ITS | Clinical Summary ---
Author Organization [facility] Address [address] [place] [address] Care Team Providers Care Assistant Infant Toddler Teacher Name Role Phone Kristietristin Chriskeesha Syed DO Primary Care Provider [phone] Source Comments [facility],non-owned Affiliates and Associated Physician Practices is amultiple site organization consisting of ambulatory clinics and hospital sitesin [place], [place], [place] and [place]. This disclosure is being madepursuant to the Care Everywhere program and may not contain all information available regarding this patient. Last updated 18.[facility] Immunizations Immunization Administration Dates Next Due INFLUENZA [...] topic Insurance [employer] [facility] MEDICARE MEDICARE MEDICARE [employer] [facility] MEDICARE MEDICARE Care Teams Assistant Infant Toddler Teacher Relationship Specialty Start Date End Date Chris Gudino DO [address] [facility] [address] [place] [address] PCP - General 02/07/22
--- OUTSIDE RECORDS SUMMARY | 2025-04-10 09:38 | XMS_ITS | Encounter Summary ---
Author Organization [facility] Address [address] [facility] [address] [place] [address] Care Team Providers Care Regulatory Affairs Consultant Name Role Phone Chris Gudino DO Primary Care Provider [phone] Encounter Details Date Type Department Care Team (Late st Contact Info) Description 12/04/2020 Lab Requisition [facility] Care DermPath Lab [address] [facility] [place] [phone] Lonnie Webb MD [address] [facility] [place] [address] Social History Tobacco Use Types [...] AM CDT) Case Report Dermatopathology Report Case: [id number] Authorizing Provider: Lonnie Webb MD Collected: 12/03/2020 03:33 AM Ordering Location: [facility] Care DermPath Lab Received: 12/04/2020 06:42 AM Pathologist: Dmitry Claros MD Specimen: Skin, left cheek 03/22/202 1 4:07 PM CDT DERMATOPATHOLOGY LABORATORY Final Diagnosis Specimen A. SKIN, left cheek: BASAL CELL CARCINOMA, NODULAR TYPE (C44.319) 4:07 PM CDT DERMATOPATHOLOGY LABORATORY at 1607 CDT Clinical History BCCA vs angioma. Path# [id number]. 4:07 PM CDT DERMATOPATHOLOGY LABORATORY Gross Description Specimen A: Received is one formalin filled container labeled with the patient's name and designated left cheek. The specimen consists of a shave biopsy measuring [id number]. Jar 0. 4:07 PM CDT DERMATOPATHOLOGY LABORATORY [...] characteristic determined by the Dermatopathology Laboratory at [facility], directed by Dr. Carola Claros. These tests need not be, and therefore are not, approved by the [place] Food and Drug Administration. The tests are used for clinical purposes. Billing Codes Specimen Charges Stain Charges 17972 1 4:07 PM CDT DERMATOPATHOLOGY LABORATORY Embedded Images 4:07 PM CDT DERMATOPATHOLOGY LABORATORY Pathology/Cytolo gy TISSUE SPECIMEN FROM SKIN / Unknown 12/03/2020 3:33 AM CDT 12/04/2020 6:42 AM CDT us Lonnie Webb MD LAB - PATHOLOGY/CYTOLOGY ORDER ALTHEA Final Result DERMATOPATHOLOGY LABORATORY [facility] - Department of Dermatology [address], [address] [phone] documented in this encounter Visit Diagnoses Not on filedocumented in this encounter Care Teams Regulatory Affairs Consultant Relationship Specialty Start Date End Date Chris Gudino DO [address] [facility] [address] [address] PCP - General 02/07/22 documented as of this encounter
--- OUTSIDE RECORDS SUMMARY | 2025-04-10 09:38 | XMS_ITS | Referral Summary ---
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
--- OUTSIDE RECORDS SUMMARY | 2025-04-10 09:38 | XMS_ITS | Encounter Summary ---
Author Organization [facility] Address [address] [place] [address] Care Team Providers Care Lighting Director Name Role Phone Chris Gudino DO Primary Care Provider +1 [phone] Encounter Details Date Type Department Care Team (Late st Contact Info) Description 12/15/2021 Lab Requisition [facility] Care DermPath Lab [address] [facility] [place] [phone] Lonnie Webb MD [address] [facility] [place] [address] Social History Tobacco Use Types [...] AM CDT) Case Report Dermatopathology Report Case: [id number] Authorizing Provider: Lonnie Webb MD Collected: 12/15/2021 12:00 AM Ordering Location: [facility] Care DermPath Lab Received: 12/15/2021 04:41 PM Pathologist: Uzma Terry MD Specimen: Skin, right postauricular 2 1:04 PM CDT DERMATOPATHOLOGY LABORATORY Final Diagnosis Specimen A. SKIN, right postauricular: BASAL CELL CARCINOMA, NODULAR TYPE (C44.212) 2 1:04 PM CDT DERMATOPATHOLOGY LABORATORY at 1304 CDT Clinical History BCCA vs other. Path # [id number]. 2 1:04 PM CDT DERMATOPATHOLOGY LABORATORY Gross Description Specimen A: Received is one formalin filled container labeled with the patient's name and designated right postauricular. The specimen consists of a shave biopsy measuring [id number]. Jar 0. 2 1:04 PM CDT DERMATOPATHOLOGY [...] characteristic determined by the Dermatopathology Laboratory at [facility], directed by Dr. Carola Claros. These tests need not be, and therefore are not, approved by the [place] Food and Drug Administration. The tests are used for clinical purposes. Billing Codes Specimen Charges Stain Charges 24545 1 2 1:04 PM CDT DERMATOPATHOLOGY LABORATORY Embedded Images 2 1:04 PM CDT DERMATOPATHOLOGY LABORATORY Pathology/Cytolog y TISSUE SPECIMEN FROM SKIN / Unknown 12/15/2021 12/15/2021 4:41 PM CDT us Lonnie Webb MD LAB - PATHOLOGY/CYTOLOGY ORDER ALTHEA Final Result DERMATOPATHOLOGY LABORATORY [facility] - Department of Dermatology [address] [phone] documented in this encounter Visit Diagnoses Not on filedocumented in this encounter Care Teams Lighting Director Relationship Specialty Start Date End Date Chris Gudino DO [address] [facility] [address] [facility] [address] [place] [address] PCP - General 02/07/22 documented as of this encounter
--- OUTSIDE RECORDS SUMMARY | 2025-04-10 09:38 | XMS_ITS | Continuity of Care Document ---
Author Organization [facility] Address [address] [place] [address] Phone Care Team Providers Care Classroom Technology Technician Name Role Phone Unavailable Unavailable Unavailable Procedures [...] Date Provider Providers Copied on Encounter [facility], [address], [id number], [place] tel:[phone] [facility] No Information 7 No Information [facility], [address] [facility] [address], [place], [place], [id number], [place] tel:[phone] [facility] No Information 7 No Information [facility], [address], [place], [place], [id number], [place] tel:[phone] [facility] No Information 6 No Information [facility], [address] [facility] [address], [place], [id number], tel:[phone] [facility] [place] No Information 3200 6 No Information Office/outpat ient visit,est, [facility], [address], [place], [place], [id number], tel:[phone] [facility] No Information 0 8200 6 No Information [facility], [address] [facility] [address], [place], [place], [id number], tel:[phone] [place] [address] No Information 0 6200 6 No Information Office/outpat ient visit,[facility], [facility], [address] [address], [place], [place], [id number], tel:[phone] [facility] No Information 0200 6 No Information Family History Family Member Type Diagnosis Age At Onset No Information Payers Payer name Insurance type Covered alliance party ID Authorchristosa tilenny(s) [facility] [id number] Social History Type Description Quantity Date Captured [...]
--- OUTSIDE RECORDS SUMMARY | 2025-04-10 09:38 | XMS_ITS | Encounter Summary ---
Author Organization [facility] Address [address] [place] [address] Care Team Providers Care Slubber Frame Changer Name Role Phone Chris Gudino DO Primary Care Provider [phone] Encounter Details Date Type Department Care Team (Late st Contact Info) Description 01/20/2023 Lab Requisition [facility] DermPath Lab [address] [place] [id number] Lonnie Webb MD [address] [facility] [place] [address] Social History Tobacco Use Types [...] AM CDT) Case Report Dermatopathology Report Case: [id number] Authorizing Provider: Lonnie Webb MD Collected: 01/18/2023 12:00 AM Ordering Location: [facility] Care DermPath Lab Received: 01/20/2023 06:40 AM Pathologist: Emilia Caputo MD Specimen: Skin, ant. neck 12:31 PM CDT DERMATOPATHOLOGY LABORATORY Final Diagnosis Specimen A. SKIN, ant. neck: BASAL CELL CARCINOMA, NODULAR TYPE (C44.41) 3 12:31 PM CDT DERMATOPATHOLOGY LABORATORY at 1231 CDT Clinical History [facility] vs. Other. Path# [id number] 3 12:31 PM CDT DERMATOPATHOLOGY LABORATORY Gross [...] determined by the Dermatopathology Laboratory at [facility], directed by Dr. Carola Claros. These tests need not be, and therefore are not, approved by the [place] Food and Drug Administration. The tests are used for clinical purposes. Billing Codes Specimen Charges Stain Charges [id number] 1 12:31 PM CDT DERMATOPATHOLOGY LABORATORY Embedded Images 12:31 PM CDT DERMATOPATHOLOGY LABORATORY Pathology/Cytolog y TISSUE SPECIMEN FROM SKIN / Unknown 01/18/2023 01/20/2023 6:40 AM CDT us Lonnie Webb MD LAB - PATHOLOGY/CYTOLOGY ORDER ALTHEA Final Result DERMATOPATHOLOGY LABORATORY [facility] - Department of Dermatology [address], [address] [phone] documented in this encounter Visit Diagnoses Not on filedocumented in this encounter Care Teams Slubber Frame Changer Relationship Specialty Start Date End Date Chris Gudino DO [address] [facility] [address] [place] [address] PCP - General 02/07/22 documented as of this encounter
== END 2025-04-10 09:46 | disposition home or self-care (01) ==
LOC: ANHED 09:36
PROVIDERS: Emergency Provider Physician Assistant; PCP Internal Medicine
DX: S61.313A Laceration without foreign body of left middle finger with damage to nail, initial encounter (principal); Z23 Encounter for immunization; I48.0 Paroxysmal atrial fibrillation; E78.5 Hyperlipidemia, unspecified; I10 Essential (primary) hypertension; G47.33 Obstructive sleep apnea (adult) (pediatric); Z79.01 Long term (current) use of anticoagulants; W29.3XXA Contact with powered garden and outdoor hand tools and machinery, initial encounter
CPT/HCPCS: 73140; 90471; 90715; 99283; A9270